=== PATIENT | male | born 1975 | race Caucasian/White ===

== ENCOUNTER 2021-02-07 12:18 | Inpatient (IN) ==
[2021-02-07] MEDS ORDERED: SODIUM CHLORIDE 0.9% 1000ML 1,000 ML IV STA (12:37)
[2021-02-07] MEDS ORDERED: HYDROmorphone INJ 0.5 MG/0.5 ML SYR IV STA (12:37)
[2021-02-07] MEDS ORDERED: ONDANSETRON INJ 2 MG/ML 2 ML VIAL IV STA (12:37)
--- NOTE | 2021-02-07 12:44 | Emergency Department Note ---
History of Present Illness General Chief complaint: GI Assessment Stated complaint: ABDOMINAL PAIN, GI BLEED Time Seen by Provider: 02/07/21 12:23 Source: patient History of Present Illness Provider complaint: Abdominal pain Onset (ago): month(s) Location: abdomen Radiation: other (Lower chest) Pain Consistency: + constant Maximum Pain Intensity: 10 Quality: + other (Pressure) Exacerbated By: + eating Associated symptoms: + nausea/vomiting; no cough, no headaches and no shortness of breath This is a 45-year-old male with a history of metastatic pancreatic cancer as well as a hepatic abscess presenting with persistent abdominal pain and vomiting for the past month and a half. The patient states that he has a diffuse pain throughout his abdomen. He rates it a 10 out of 10 in severity. He describes it as a pressure. It is worse when he tries to eat. He states that whenever he tries to eat or drink anything he feels extremely nauseated starts burping and then vomits. He was vomiting some brown material and states that his stools are dark but not black. He does have a history of hemorrhoids. He states that he cannot keep anything down and he is not urinating as much as usual and has had dark urination. He denies any fever but states he has had some chills. He denies any known exposure to COVID-19 but has not had the vaccine. He did have a negative test recently in order to get a port placed. He states he last had a bowel movement yesterday after he ate some Jell-O but it was a very scant amount. His pain does radiate into his lower chest. He denies difficulty breathing. He does have some antibiotics left for treatment of his hepatic abscess which previously had a drain and was treated at [facility]. Home Medications Medication Instructions Recorded Confirmed Type acetaminophen [Tylenol Extra 1,000 mg PO Q8H PRN 01/03/21 02/07/21 History Strength] amoxicillin 500 mg capsule 500 mg PO BID 01/28/21 02/07/21 History ibuprofen 800 mg PO Q6H PRN 01/28/21 02/07/21 History oxycodone 10 mg tablet 10 mg PO Q4H PRN 01/28/21 02/07/21 History lactobacillus combination no.4 3,000 mmu cells PO QAM 02/07/21 02/07/21 History [Probiotic] Allergies Allergy/AdvReac Type Severity Reaction Status Date / Time No Known Allergies Allergy Unverified 02/07/21 13:56 Past Med/Surg History Medical History Hepatic abscess Kidney stones no surgerical intervention Pancreatic adenocarcinoma diagnosed 12/2020 Surgical History H/O laparoscopy 12/2020 at [facility]. to drain Hepatic abscess and drain placed. Hx of surgical biopsy pancreatic cancer S/P right rotator cuff repair Family History Other No family history of adverse response to anesthesia Social History Smoking Status: Current every day smoker Tobacco Type: Cigarettes packs per day: 1; Years Smoked: 25; Second Hand Exposure: Yes (hx); Hx Alcohol Use: Yes Hx Substance Use: No Preferred Language: Gambian Communication Ability: Effective Tunnel Miner Required: No Beliefs That Will Affect Care: None Current Living Situation: Spouse and Family How many Children do You have: 3 Feels Safe at Home: Yes Assistive Devices: Glasses Review of Systems See HPI for pertinent positives & negatives. and A total of 10 systems reviewed and were otherwise negative Physical Exam Vital Signs Vital Signs - 24 hr 02/07/21 12:26 02/07/21 12:38 02/07/21 13:23 Temperature 36.9 C Temperature Source Oral Pulse Rate 92 H 74 Pulse Rate [Apical] 79 Pulse Rhythm Regular Pulse Rhythm [Apical] Regular Respiratory Rate 16 16 16 Respiratory Effort / Characteristics Non-Labored Non-Labored Respiratory Depth Normal Normal Blood Pressure 138/93 Blood Pressure [Right Arm] 140/101 H Blood Pressure Mean 108 Blood Pressure Mean [Right Arm] 114 Blood Pressure Position Lying Pulse Oximetry 95 96 95 Oxygen Delivery Method Room Air Room Air Room Air Sepsis Recent Fever Within 48 Hours No Sepsis New/Unexplained Change in Mental Status No Sepsis Action Taken by Nursing No Action Required 02/07/21 14:33 02/07/21 16:00 Temperature Temperature Source Pulse Rate Pulse Rate [Apical] 70 77 Pulse Rhythm Pulse Rhythm [Apical] Regular Respiratory Rate 29 H 16 Respiratory Effort / Characteristics Non-Labored Respiratory Depth Normal Normal Blood Pressure Blood Pressure [Right Arm] 143/106 H 141/103 H Blood Pressure Mean Blood Pressure Mean [Right Arm] 118 115 Blood Pressure Position Pulse Oximetry 95 95 Oxygen Delivery Method Room Air Room Air Sepsis Recent Fever Within 48 Hours Sepsis New/Unexplained Change in Mental Status Sepsis Action Taken by Nursing Constitutional: Vital signs reviewed. Eyes: Pupils are equal round reactive to light. Conjunctiva are noninjected. ENT: Pharynx is clear without erythema or exudate. Mucous membranes are dry. Neck supple without meningeal signs. Respiratory: Clear to auscultation bilaterally. Breath sounds are equal bilaterally. Cardiovascular: Regular rate and rhythm. No rubs or gallops. GI: Soft, nondistended with mild diffuse tenderness. Well-healed scar in the right upper quadrant measuring approximately 1.5 cm. Bowel sounds are present. Rectal: External hemorrhoids. Bright red blood without stool. Musculoskeletal: No peripheral edema. No lower extremity tenderness. Integumentary: No cyanosis. or jaundice. Neurological: The patient is awake and alert. No focal deficits. Psychiatric: Normal affect. Not anxious appearing. Course Administered Medications Hydromorphone HCl (Hydromorphone Inj 1 Mg/Ml Syringe) 1 mg IV Q1H PRN PRN Reason: Pain Stop: 02/21/21 18:14 Last Admin: 02/07/21 18:35 Dose: 1 mg Documented by: [id number] Oxycodone HCl (Oxycodone Hcl Ir 5 Mg Tab (Immediate Release)) 10 mg PO Q4H PRN PRN Reason: Pain Stop: 02/21/21 18:14 Last Admin: 02/07/21 18:42 Dose: 10 mg Documented by: [id number] Discontinued Medications Hydromorphone HCl (Hydromorphone Inj 0.5 Mg/0.5 Ml Syr) 0.5 mg IV NOW STA Stop: 02/07/21 12:38 Last Admin: 02/07/21 13:10 Dose: 0.5 mg Documented by: [id number] Sodium Chloride (Nss 1000ml) 1,000 mls @ 999 mls/hr IV .Q1H1M STA Stop: 02/07/21 13:37 Last Infusion: 02/07/21 14:29 Dose: 0 mls/hr Documented by: [id number] Admin: 02/07/21 13:08 Dose: 999 mls/hr Documented by: [id number] Lactated Ringer's (Lr) 1,000 mls @ 125 mls/hr IV .Q8H YEISON Stop: 03/09/21 14:29 Last Admin: 02/07/21 15:54 Dose: 125 mls/hr Documented by: [id number] Ondansetron HCl (Ondansetron Inj 2 Mg/Ml 2 Ml Vial) 4 mg IV NOW STA Stop: 02/07/21 12:38 Last Admin: 02/07/21 13:08 Dose: 4 mg Documented by: [id number] Medical Decision Making Differential Diagnosis NORBERTO, bowel obstruction, intra-abdominal abscess, dehydration, pancreatic mass Medical Records Attestation: I reviewed the patient's medical records. I did perform a limited focused review of portions of the patient's old chart on the electronic medical record. The patient was diagnosed early last month with metastatic pancreatic cancer. He also had a hepatic abscess and was treated at [facility]. He recently had a port placed by general surgery. Home Medications Current Medication List: was personally reviewed by me Laboratory Data Attestation: I reviewed the patient's lab results. Result diagrams: 02/07/21 12:55 02/07/21 12:55 Lab Results 02/07/21 02/07/21 02/07/21 Range/Units 12:55 12:55 12:55 WBC 10.01 (4.8-10.8) K/uL RBC 4.94 (4.7-6.1) M/uL Hgb 14.9 (14.0-18.0) g/dL Hct 42.4 (42-52) % MCV 85.8 (80-100) fL MCH 30.2 (25-34) pg MCHC 35.1 (32-36) g/dL RDW Std Deviation 41.4 (36.4-46.3) fL RDW Coeff of [place] 13.0 (11.5-14.5) % Plt Count 166 (130-400) K/uL MPV 9.5 (7.4-10.4) fL Immature Gran % (Auto) 0.7 % Neut % (Auto) 78.3 % Lymph % (Auto) 15.1 % [place] % (Auto) 2.5 % Eos % (Auto) 3.2 % Baso % (Auto) 0.2 % Neut # (Auto) 7.84 H (1.4-6.5) K/uL Lymph # (Auto) 1.51 (1.2-3.4) K/uL [place] # (Auto) 0.25 (0.11-0.59) K/uL Eos # (Auto) 0.32 (0-0.5) K/uL Baso # (Auto) 0.02 (0-0.2) K/uL Immature Gran # (Auto) 0.07 H (0.00-0.02) K/uL Sodium 136 (136-145) mmol/L Potassium 4.1 (3.5-5.1) mmol/L Chloride 101 (98-107) mmol/L Carbon Dioxide 27 (21-32) mmol/L Anion Gap 8.0 (3-11) BUN 29 H (7-18) mg/dl Creatinine 1.04 (0.6-1.4) mg/dl Est Cr Clr Drug Dosing Not Reportable Est GFR ( Amer) 98.6 ml/min Est GFR (Non-Af Amer) 85.1 ml/min BUN/Creatinine Ratio 28.2 H (10-20) Glucose 118 H (70-99) mg/dl Calcium 8.9 (8.5-10.1) mg/dl Total Bilirubin 0.6 (0.2-1) mg/dl AST 31 (15-37) U/L ALT 48 (12-78) U/L Alkaline Phosphatase 112 (45-117) U/L Troponin I < 0.015 (0-0.045) ng/ml Total Protein 7.5 (6.4-8.2) gm/dl Albumin 3.8 (3.4-5.0) gm/dl Globulin 3.7 (2.5-4.0) gm/dl Albumin/Globulin Ratio 1.0 (0.9-2) Lipase 258 (73-393) U/L Urine Color Urine Appearance (Clear) Urine pH (4.5-7.5) Ur Specific [place] (1.000-1.030) Urine Protein (Negative) Urine Glucose (UA) (Negative) Urine Ketones (Negative) Urine Blood (Negative) Urine Nitrite (Negative) Urine Bilirubin (Negative) Urine Urobilinogen (Negative) Ur Leukocyte Esterase (Negative) COVID-19 Eval Order SARS-CoV-2 (PCR) (Negative) Blood Type A Positive Antibody Screen NEGATIVE 02/07/21 02/07/21 02/07/21 Range/Units 13:15 13:15 14:30 WBC (4.8-10.8) K/uL RBC (4.7-6.1) M/uL Hgb (14.0-18.0) g/dL Hct (42-52) % MCV (80-100) fL MCH (25-34) pg MCHC (32-36) g/dL RDW Std Deviation (36.4-46.3) fL RDW Coeff of [place] (11.5-14.5) % Plt Count (130-400) K/uL MPV (7.4-10.4) fL Immature Gran % (Auto) % Neut % (Auto) % Lymph % (Auto) % [place] % (Auto) % Eos % (Auto) % Baso % (Auto) % Neut # (Auto) (1.4-6.5) K/uL Lymph # (Auto) (1.2-3.4) K/uL [place] # (Auto) (0.11-0.59) K/uL Eos # (Auto) (0-0.5) K/uL Baso # (Auto) (0-0.2) K/uL Immature Gran # (Auto) (0.00-0.02) K/uL Sodium (136-145) mmol/L Potassium (3.5-5.1) mmol/L Chloride (98-107) mmol/L Carbon Dioxide (21-32) mmol/L Anion Gap (3-11) BUN (7-18) mg/dl Creatinine (0.6-1.4) mg/dl Est Cr Clr Drug Dosing Est GFR ( Amer) ml/min Est GFR (Non-Af Amer) ml/min BUN/Creatinine Ratio (10-20) Glucose (70-99) mg/dl Calcium (8.5-10.1) mg/dl Total Bilirubin (0.2-1) mg/dl AST (15-37) U/L ALT (12-78) U/L Alkaline Phosphatase (45-117) U/L Troponin I (0-0.045) ng/ml Total Protein (6.4-8.2) gm/dl Albumin (3.4-5.0) gm/dl Globulin (2.5-4.0) gm/dl Albumin/Globulin Ratio (0.9-2) Lipase (73-393) U/L Urine Color Yellow Urine Appearance Clear (Clear) Urine pH 5.0 (4.5-7.5) Ur Specific [place] 1.030 (1.000-1.030) Urine Protein Negative (Negative) Urine Glucose (UA) Negative (Negative) Urine Ketones Negative (Negative) Urine Blood Negative (Negative) Urine Nitrite Negative (Negative) Urine Bilirubin Negative (Negative) Urine Urobilinogen Negative (Negative) Ur Leukocyte Esterase Negative (Negative) COVID-19 Eval Order Covid19 at [facility] SARS-CoV-2 (PCR) NEGATIVE (Negative) Blood Type Antibody Screen Imaging Data Radiologist's Impression: Abdomen/Pelvis CT 02/07/21 12:37 CT SCAN OF THE ABDOMEN AND PELVIS WITHOUT IV CONTRAST CLINICAL HISTORY: Generalized abdominal pain. Reported history of pancreatic cancer. COMPARISON STUDY: No priors. TECHNIQUE: CT scan of the abdomen and pelvis is performed from the lung bases to the proximal femora. Images are reviewed in the axial, sagittal, and coronal planes. IV contrast was not administered for this examination. Note that the examination was performed in significantly suboptimal fashion without oral and IV contrast. A dose lowering technique was utilized adhering to the principles of ALARA. CT DOSE: 1012.38 mGy.cm FINDINGS: Lung bases: The heart is normal in size and without pericardial effusion. There are coronary artery calcifications. The lung bases are clear. Liver: The unenhanced liver is normal in size, contour, and attenuation. There is no intrahepatic biliary ductal dilatation. There are numerous (greater than 1 0) hypodense hepatic lesions measuring up to 2.2 cm. These are highly concerning for multifocal hepatic metastatic disease. Gallbladder: Unremarkable. Spleen: Normal in size and attenuation. Pancreas: An infiltrative mass is suggested in the pancreatic head measuring approximately 3.5 cm. The pancreatic duct is normal in caliber. Adrenal glands: Unremarkable. Kidneys: The unenhanced kidneys are normal in size and without hydronephrosis. There are least 5 nonobstructing identified in each kidney which measure up to 6 mm. No ureteral stone is seen. There is no evidence of contour deforming renal mass lesion. Abdominal vasculature: The abdominal aorta is normal in course and caliber. Bowel: There is mild colonic diverticulosis without CT evidence of acute diverticulitis. No bowel obstruction is identified. The appendix is well- visualized and normal. Peritoneum: There is no intraperitoneal free air or abdominal ascites. There is a fat-containing umbilical hernia. Lymphadenopathy: There is a 1.9 x 1.8 cm lymph node posterior to the superior mesenteric artery seen on image #153. This is concerning for metastatic disease. An indeterminant portacaval node measures 1.1 cm in short axis. Pelvic viscera: The bladder, prostate, and seminal vesicles are normal as imaged. Skeletal structures: No lytic or blastic lesions are seen. IMPRESSION: 1. Significantly suboptimal examination lateral and IV contrast. 2. There are no acute infectious or inflammatory findings in the abdomen or pelvis. 3. Infiltrative low-attenuation mass lesion is suggested in the pancreatic head, likely corresponding to the reported history of pancreatic cancer. 4. There are numerous (greater than 10) low attenuation hepatic lesions. These are highly suspicious for multifocal hepatic metastatic disease. 5. Enlarged upper abdominal lymph node is also likely neoplastic. 6. Bilateral nephrolithiasis. 7. Mild colonic diverticulosis without CT evidence of acute diverticulitis. 8. Additional findings as above. ACT 112: Negative or not required by law. Electronically signed by: Severiano Watson M.D. 02/07/2021 1:38 PM ECG Data Attestation: I personally reviewed and interpreted this ECG as follows: Indication: + abdominal pain Rate (beats per minute): 92 Rhythm: + normal sinus ECG ST segments: no ST elevation ECG Findings: + PACs MDM Narrative I did evaluate the patient as noted above. The patient is presenting with intermittent vomiting and abdominal pain since he was diagnosed with metastatic pancreatic cancer last month. He states it has recently got worse and he has not been able to keep down any liquids or solids. He states that he is not necessarily nauseated but when he drinks something he starts burping and then throws up. He states he is not urinating very much and his urine looks dark. I did place an order for continuous cardiac monitoring. The monitor showed normal sinus rhythm at a rate of 85 bpm. I did order and personally review the patient's 12-lead EKG as described above. He has no acute ischemic changes on twelve-lead EKG.I did order and review the patient's blood work as noted in the electronic medical record. His white blood cell count is not elevated. Hemoglobin is 14.9 which is increased from 14.5 from his last visit. Platelet count is 166. Electrolytes, LFTs and lipase are unremarkable. I did order a CT of the abdomen and pelvis. I did review the images myself as well as the radiology report as described above. He has no evidence of obstruction. He does have pancreatic head mass with metastatic disease to the liver. I did treat the patient with normal saline IV. I also treated him with Dilaudid and Zofran IV. I did discuss the test results with the patient and his . He did not feel he could go home at this time as he is taking 2 different med ications for nausea and vomiting and they are not effective. He will be hospitalized for hydration and further care. I did discuss case with the hospitalist and egg caser. Impression & Plan Acute dehydration, Bright red rectal bleeding, Vomiting, Pancreatic cancer metastasized to liver Discharge Plan Visit Data Chief Complaint: GI Assessment Stated Complaint: ABDOMINAL PAIN, GI BLEED ED Provider: Aidan Fernandez Discharge Problem: Acute dehydration, Bright red rectal bleeding, Vomiting, Pancreatic cancer metastasized to liver Patient Disposition: Being Evaluated by Hospitalist Discharge Problem: Vomiting Qualifiers: Vomiting type: unspecified Vomiting Intractability: intractable Nausea presence: without nausea Qualified Code(s): R11.11 - Vomiting without nausea
[2021-02-07 13:04] LABS: Basophils # (auto) 0.02 K/uL (0-0.2); Basophils % (auto) 0.2 %; Eosinophils # (auto) 0.32 K/uL (0-0.5); Eosinophils % (auto) 3.2 %; Hematocrit (blood only) 42.4 % (42-52); Hemoglobin 14.9 g/dL (14.0-18.0); Immature Granulocytes # (auto) 0.07 K/uL (0.00-0.02); Immature Granulocytes % (auto) 0.7 %; Lymphocytes # (auto) 1.51 K/uL (1.2-3.4); Lymphocytes % (auto) 15.1 %; Mean Corpuscular Hemoglobin 30.2 pg (25-34); Mean Corpuscular Hgb Conc 35.1 g/dL (32-36); Mean Corpuscular Volume 85.8 fL (80-100); Mean Platelet Volume 9.5 fL (7.4-10.4); Monocytes # (auto) 0.25 K/uL (0.11-0.59); Monocytes % (auto) 2.5 %; Neutrophils # (auto) 7.84 K/uL (1.4-6.5); Neutrophils % (auto) 78.3 %; Platelet Count 166 K/uL (130-400); RDW Standard Deviation 41.4 fL (36.4-46.3); Red Blood Count 4.94 M/uL (4.7-6.1); White Blood Count 10.01 K/uL (4.8-10.8)
[2021-02-07 13:22] LABS: Alanine Aminotransferase 48 U/L (12-78); Albumin Level 3.8 gm/dl (3.4-5.0); BUN Creatinine Ratio 28.2 (10-20); Blood Urea Nitrogen 29 mg/dl (7-18); Calcium 8.9 mg/dl (8.5-10.1); Carbon Dioxide 27 mmol/L (21-32); Chloride 101 mmol/L (98-107); Est GFR (African American) 98.6 ml/min; Est GFR (Non-African American) 85.1 ml/min; Glucose 118 mg/dl (70-99); Lipase 258 U/L (73-393); Potassium 4.1 mmol/L (3.5-5.1); Sodium 136 mmol/L (136-145)
[2021-02-07 13:28] LABS: Alkaline Phosphatase 112 U/L (45-117); Aspartate Aminotransferase 31 U/L (15-37); Bilirubin,Total 0.6 mg/dl (0.2-1); Globulin 3.7 gm/dl (2.5-4.0); Total Protein 7.5 gm/dl (6.4-8.2); Troponin I < 0.015 ng/ml (0-0.045)
--- NOTE | 2021-02-07 13:39 | CT Scan Report ---
CT SCAN OF THE ABDOMEN AND PELVIS WITHOUT IV CONTRAST CLINICAL HISTORY: Generalized abdominal pain. Reported history of pancreatic cancer. COMPARISON STUDY: No priors. TECHNIQUE: CT scan of the abdomen and pelvis is performed from the lung bases to the proximal femora. Images are reviewed in the axial, sagittal, and coronal planes. IV contrast was not administered for this examination. Note that the examination was performed in significantly suboptimal fashion withou t oral and IV contrast. A dose lowering technique was utilized adhering to the principles of ALARA. CT DOSE: 1012.38 mGy.cm FINDINGS: Lung bases: The heart is normal in size and without pericardial effusion. There are coronary artery c alcifications. The lung bases are clear. Liver: The unenhanced liver is normal in size, contour, and attenuation. There is no intrahepatic rut iary ductal dilatation. There are numerous (greater than 10) hypodense hepatic lesions measuring up t o 2.2 cm. These are highly concerning for multifocal hepatic metastatic disease. Gallbladder: Unremarkable. Spleen: Normal in size and attenuation. Pancreas: An infiltrative mass is suggested in the pancreatic head measuring approximately 3.5 cm. Th e pancreatic duct is normal in caliber. Adrenal glands: Unremarkable. Kidneys: The unenhanced kidneys are normal in size and without hydronephrosis. There are least 5 nono bstructing identified in each kidney which measure up to 6 mm. No ureteral stone is seen. There is no evidence of contour deforming renal mass lesion. Abdominal vasculature: The abdominal aorta is normal in course and caliber. Bowel: There is mild colonic diverticulosis without CT evidence of acute diverticulitis. No bowel obs truction is identified. The appendix is well-visualized and normal. Peritoneum: There is no intraperitoneal free air or abdominal ascites. There is a fat-containing umbi lical hernia. Lymphadenopathy: There is a 1.9 x 1.8 cm lymph node posterior to the superior mesenteric artery seen on image #153. This is concerning for metastatic disease. An indeterminant portacaval node measures 1 .1 cm in short axis. Pelvic viscera: The bladder, prostate, and seminal vesicles are normal as imaged. Skeletal structures: No lytic or blastic lesions are seen. IMPRESSION: 1. Significantly suboptimal examination lateral and IV contrast. 2. There are no acute infectious or inflammatory findings in the abdomen or pelvis. 3. Infiltrative low-attenuation mass lesion is suggested in the pancreatic head, likely corresponding to the reported history of pancreatic cancer. 4. There are numerous (greater than 10) low attenuation hepatic lesions. These are highly suspicious for multifocal hepatic metastatic disease. 5. Enlarged upper abdominal lymph node is also likely neoplastic. 6. Bilateral nephrolithiasis. 7. Mild colonic diverticulosis without CT evidence of acute diverticulitis. 8. Additional findings as above. ACT 112: Negative or not required by law. Electronically signed by: Severiano Watson M.D. 02/07/2021 1:38 PM
[2021-02-07] MEDS ORDERED: LACTATED RINGER'S 1,000 ML IV SCH (14:30)
[2021-02-07 14:47] LABS: Appearance Urine Clear (Clear); Bilirubin Urine Negative (Negative); Blood Urine Negative (Negative); Color Urine Yellow; Glucose Urine UA Negative (Negative); Ketones Urine Negative (Negative); Leukocyte Esterase Urine Negative (Negative); Nitrite Urine Negative (Negative); Protein Urine Negative (Negative); Urobilinogen Urine Negative (Negative)
--- NOTE | 2021-02-07 15:21 | History & Physical Report ---
Date of Service February 07, 2021 Assessment & Plan (1) Acute dehydration: (2) Intractable nausea and vomiting: (3) Pancreatic cancer metastasized to liver: (4) Pancreatic adenocarcinoma: Mr. Negrete is a 45-year-old male a history of Metastatic Pancreatic Adenocarcinoma with Liver Metastases, Nephrolithiasis, Hemorrhoids, and a history of a Liver Abscess s/p Surgical Intervention/Drain at [facility] who presents acutely to [facility] ER today with Acute Dehydration, Abdominal Pain, and Intractable Nausea and Vomiting. His complaints included persistent abdominal pain and vomiting for the past month and a half. The patient has a diffuse pain/pressure rated at a 10/10 throughout his abdomen but mostly in the upper abdomen and midepigastrium. He describes it mostly as a pressure and it gets worse if he tries to eat or drink. If he tries to eat or drink anything he feels extremely nauseated, starts burping, and then he usually vomits. He was vomiting up some brown material and he admits that his stools are dark but not black. He does have a history of hemorrhoids. He cannot keep anything down and he is not urinating as much as usual. When he urinates it is very dark and concentrated. Patient denies any fever but states he has had some chills. Patient continues to gradually lose weight. He has lost about 25 lb since being diagnosed with pancreatic cancer. His last bowel movement was yesterday after he ate some Jell-O but it was a very small amount. The upper abdominal/midepigastric pain does radiate into his lower chest. He denies associated SOB, GOLDSTEIN, diaphoresis -- so this is not cardiac. Patient is currently receiving his chemotherapy treatments through the [facility]. He is on the FOLFIRINOX protocol every 2 weeks (this includes Fluorouracil, Leucovorin, Irinotecan, Oxaliplatin). His last chemotherapy treatment was on 02/01/21. His oncologist is Dr. Armenta. 1. Admit to Med-Surg on observation status. 2. IVF rehydration. 3. GI Consult regarding intractable nausea/vomiting, possible EGD. 4. Opiate analgesics for pain control. 5. IV Famotidine 20 mg q 12 hours. 6. Gradually progress diet as tolerated. 7. Metoclopramide 5 mg as needed. 8. SL Nitroglycerin as needed for esophageal spasms, abdominal colic. 9. Monitor daily labs. History of Present Illness Chief Complaint: -- Nausea and Vomiting. -- Metastatic Pancreatic Adenocarcinoma. -- h/o Hepatic Abscesses. Primary Care Provider: Neal Franco PA-C Mr. Negrete is a 45-year-old male a history of Metastatic Pancreatic Adenocarcinoma with Liver Metastases, Nephrolithiasis, Hemorrhoids, and a history of a Liver Abscess s/p Surgical Intervention/Drain at [facility] who presents acutely to [facility] ER today complaining of persistent abdominal pain and vomiting for the past month and a half. The patient has a diffuse pain/pressure rated at a 10/10 throughout his abdomen but mostly in the upper abdomen and midepigastrium. He describes it mostly as a pressure and it gets worse when he eats or drinks. If he tries to eat or drink anything he feels extremely nauseated, starts burping, and then he usually vomits. He was vomiting up some brown material and he admits that his stools are dark but not black. He does have a history of hemorrhoids. He cannot keep anything down and he is not urinating as much as usual. When he urinates it is very dark and concentrated. Patient denies any fever but states he has had some chills. Patient continues to gradually lose weight. He has lost about 25 lb since being diagnosed with pancreatic cancer. Patient denies any known exposure to COVID-19 but has not had the vaccine. He did have a negative test recently in order to get a port placed. His last bowel movement was yesterday after he ate some Jell-O but it was a very small amount. The upper abdominal/midepigastric pain does radiate into his lower chest. He denies associated SOB, GOLDSTEIN, diaphoresis. He does have some antibiotics left for treatment of his hepatic abscess which previously had a drain and was treated at [facility]. Patient is currently receiving his chemotherapy treatments through the [facility]. He is on the FOLFIRINOX protocol every 2 weeks (this includes Fluorouracil, Leucovorin, Irinotecan, Oxaliplatin). His last chemotherapy treatment was on 02/01/21. His oncologist is Dr. Armenta. Allergies Allergy/AdvReac Type Severity Reaction Status Date / Time No Known Allergies Allergy Unverified 02/07/21 13:56 Home Medications Medication Instructions Recorded Confirmed Type acetaminophen [Tylenol Extra 1,000 mg PO Q8H PRN 01/03/21 02/07/21 History Strength] amoxicillin 500 mg capsule 500 mg PO BID 01/28/21 02/07/21 History ibuprofen 800 mg PO Q6H PRN 01/28/21 02/07/21 History oxycodone 10 mg tablet 10 mg PO Q4H PRN 01/28/21 02/07/21 History lactobacillus combination no.4 3,000 mmu cells PO QAM 02/07/21 02/07/21 History [Probiotic] Past Med/Surg History Medical History Hepatic abscess Kidney stones no surgerical intervention Pancreatic adenocarcinoma diagnosed 12/2020 Surgical History H/O laparoscopy 12/2020 at [facility]. to drain Hepatic abscess and drain placed. Hx of surgical biopsy pancreatic cancer S/P right rotator cuff repair Family History Other No family history of adverse response to anesthesia Social History Smoking Status: Former smoker Tobacco Type: Cigarettes packs per day: 1; Years Smoked: 25; Second Hand Exposure: No; Do You Dip or Chew Tobacco: No; Tobacco Cessation Education Requested by Patient: No Hx Alcohol Use: No Hx Substance Use: No Preferred Language: Bulgarian Communication Ability: Effective Station Master Required: No Beliefs That Will Affect Care: None Current Living Situation: Spouse and Family Current Living Situation Comment: Spouse and 1 child. How many Children do You have: 3 Other Information That Helps Us Care for You: No Feels Safe at Home: Yes Safety Concerns: Feels Safe At This Time Assistive Devices: Glasses Assistive Devices Comment: Glasses for reading, not with pt. Review of Systems Review of Systems: All systems reviewed & are unremarkable except as noted in Subjective Physical Exam Physical Exam: GENERAL: Patient has a pale complexion, he is lying comfortably on the ER litter. HEENT: Head is atraumatic, normocephalic. Sclerae are anicteric. EOM's intact. Facies symmetric. No perioral cyanosis. NECK: No JVD. JVP is not elevated. Carotid upstrokes are + 2 bilaterally. No bruits are noted. No cervical adenopathy or supraclavicular adenopathy. CHEST/LUNGS: Clear to auscultation throughout all lung leonard. No wheezes, rales, or crackles. CVS: S1 and S2 are regular without murmurs, gallops, or rubs. PMI is nondisplaced. No lifts, heaves, or thrills. No abdominal aortic or renal bruits. ABDOMINAL EXAM: Bowel sounds are present. Mild tender to palpation in the midepigastrium. No guarding, rigidity, or rebound tenderness. No palpable masses. EXTREMITIES: No clubbing or cyanosis. No edema. Intact posterior tibial and radial pulses bilaterally. NEUROLOGIC EXAM: Patient is lying quietly, but rouses to verbal stimuli. Answers questions appropriately. Speech is clear. Normal movement in all 4 extremities. Gait pattern was not assessed. Results & Data Results & Data ([facility]) Vital Signs (Past 12 Hours) Vital Signs Temp Pulse Pulse Resp BP BP Pulse Ox 02/07/21 13:23 79 16 140/101 H 95 02/07/21 12:38 74 16 96 02/07/21 12:26 36.9 C 92 H 16 138/93 95 Laboratory Results Laboratory Results - last 24 hr 02/07/21 02/07/21 02/07/21 12:55 12:55 12:55 WBC 10.01 RBC 4.94 Hgb 14.9 Hct 42.4 MCV 85.8 MCH 30.2 MCHC 35.1 RDW Std Deviation 41.4 RDW Coeff of Golden 13.0 Plt Count 166 MPV 9.5 Immature Gran % (Auto) 0.7 Neut % (Auto) 78.3 Lymph % (Auto) 15.1 Warrick % (Auto) 2.5 Eos % (Auto) 3.2 Baso % (Auto) 0.2 Neut # (Auto) 7.84 H Lymph # (Auto) 1.51 Warrick # (Auto) 0.25 Eos # (Auto) 0.32 Baso # (Auto) 0.02 Immature Gran # (Auto) 0.07 H Sodium 136 Potassium 4.1 Chloride 101 Carbon Dioxide 27 Anion Gap 8.0 BUN 29 H Creatinine 1.04 Est Cr Clr Drug Dosing Not Reportable Est GFR ( Amer) 98.6 Est GFR (Non-Af Amer) 85.1 BUN/Creatinine Ratio 28.2 H Glucose 118 H Calcium 8.9 Total Bilirubin 0.6 AST 31 ALT 48 Alkaline Phosphatase 112 Troponin I < 0.015 Total Protein 7.5 Albumin 3.8 Globulin 3.7 Albumin/Globulin Ratio 1.0 Lipase 258 Urine Color Urine Appearance Urine pH Ur Specific Amelia Urine Protein Urine Glucose (UA) Urine Ketones Urine Blood Urine Nitrite Urine Bilirubin Urine Urobilinogen Ur Leukocyte Esterase COVID-19 Eval Order SARS-CoV-2 (PCR) Blood Type A Positive Antibody Screen NEGATIVE 02/07/21 02/07/21 02/07/21 13:15 13:15 14:30 WBC RBC Hgb Hct MCV MCH MCHC RDW Std Deviation RDW Coeff of Golden Plt Count MPV Immature Gran % (Auto) Neut % (Auto) Lymph % (Auto) Warrick % (Auto) Eos % (Auto) Baso % (Auto) Neut # (Auto) Lymph # (Auto) Warrick # (Auto) Eos # (Auto) Baso # (Auto) Immature Gran # (Auto) Sodium Potassium Chloride Carbon Dioxide Anion Gap BUN Creatinine Est Cr Clr Drug Dosing Est GFR ( Amer) Est GFR (Non-Af Amer) BUN/Creatinine Ratio Glucose Calcium Total Bilirubin AST ALT Alkaline Phosphatase Troponin I Total Protein Albumin Globulin Albumin/Globulin Ratio Lipase Urine Color Yellow Urine Appearance Clear Urine pH 5.0 Ur Specific Amelia 1.030 Urine Protein Negative Urine Glucose (UA) Negative Urine Ketones Negative Urine Blood Negative Urine Nitrite Negative Urine Bilirubin Negative Urine Urobilinogen Negative Ur Leukocyte Esterase Negative COVID-19 Eval Order Covid19 at [facility] SARS-CoV-2 (PCR) NEGATIVE Blood Type Antibody Screen Diagnostic Findings CT SCAN ABDOMEN/PELVIS 02/07/21: Lung bases: The heart is normal in size and without pericardial effusion. There are coronary artery calcifications. The lung bases are clear. Liver: The unenhanced liver is normal in size, contour, and attenuation. There is no intrahepatic biliary ductal dilatation. There are numerous (greater than 10) hypodense hepatic lesions measuring up to 2.2 cm. These are highly concerning for multifocal hepatic metastatic disease. Gallbladder: Unremarkable. Spleen: Normal in size and attenuation. Pancreas: An infiltrative mass is suggested in the pancreatic head measuring approximately 3.5 cm. The pancreatic duct is normal in caliber. Adrenal glands: Unremarkable. Kidneys: The unenhanced kidneys are normal in size and without hydronephrosis. There are least 5 nonobstructing identified in each kidney which measure up to 6 mm. No ureteral stone is seen. There is no evidence of contour deforming renal mass lesion. Abdominal vasculature: The abdominal aorta is normal in course and caliber. Bowel: There is mild colonic diverticulosis without CT evidence of acute diverticulitis. No bowel obstruction is identified. The appendix is well- visualized and normal. Peritoneum: There is no intraperitoneal free air or abdominal ascites. There is a fat-containing umbilical hernia. Lymphadenopathy: There is a 1.9 x 1.8 cm lymph node posterior to the superior mesenteric artery seen on image #153. This is concerning for metastatic disease. An indeterminant portacaval node measures 1.1 cm in short axis. Pelvic viscera: The bladder, prostate, and seminal vesicles are normal as imaged. Skeletal structures: No lytic or blastic lesions are seen. IMPRESSION: 1. Significantly suboptimal examination lateral and IV contrast. 2. There are no acute infectious or inflammatory findings in the abdomen or pelvis. 3. Infiltrative low-attenuation mass lesion is suggested in the pancreatic head, likely corresponding to the reported history of pancreatic cancer. 4. There are numerous (greater than 10) low attenuation hepatic lesions. These are highly suspicious for multifocal hepatic metastatic disease. 5. Enlarged upper abdominal lymph node is also likely neoplastic. 6. Bilateral nephrolithiasis. 7. Mild colonic diverticulosis without CT evidence of acute diverticulitis. 8. Additional findings as above. Code Status & VTE Plan Code Status Full Code VTE Prophylaxis Plan VTE Prophylaxis will be ordered: Yes Supervising Physician Co-Signing Physician Notes I personally saw and examined the patient. I verified all kwong points and agree with Cricket Patel PA-C with the following exceptions and/or additions: 45 year old male with pancreatic adenocarcinoma, intractable nausea and unable to keep food or liquids down at the current time. Worse with cold liquids. Generalized abdominal pain but not associated his nausea. Having regular BM, not constipated. CT in ER unremarkable for acute etiology. O/E chronically ill appearing, mild generalized abdominal pain, no reproducible chest pain A/P Nausea, reduced appetite - no esophageal stenosis suspected from history. Less likely chemo/antibiotic related. Lipase WNL. possible reflux although suspect they would have seen changes on prior EGD, start famotidine 20mg IV BID. ?dysmotility - trial metoclopramide. ?esophageal spasm - nitroglycerin PRN for chest pain. Consult gastroenterology for ongoing advice. PG Care Time/CCT Total # of Minutes Spent Total Time Spent with Patient: Total time spent is greater than 50% in coordination of care (as documented) at patient's floor/unit and/or counseling patient:35 Coding Level of Care Code 93703 OBS Care - Level 3 Diagnoses Acute dehydration E86.0 Intractable nausea and vomiting R11.2 Pancreatic cancer metastasized to liver C25.9; C78.7 Pancreatic adenocarcinoma C25.9 Time Spent (min) 48
[2021-02-07] MEDS ORDERED: MAGNESIUM HYDROXIDE SUSP 30 ML UDC PO PRN (18:15)
[2021-02-07] MEDS ORDERED: ACETAMINOPHEN 325 MG TAB PO PRN (18:15)
[2021-02-07] MEDS ORDERED: IBUPROFEN 800 MG TAB PO PRN (18:15)
[2021-02-07] MEDS ORDERED: ALUMINUM/MAGNESIUM SUSP 30 ML UDC PO PRN (18:15)
[2021-02-07] MEDS ORDERED: POLYETHYLENE (MIRALAX) 17 GM PACK PO PRN (18:15)
[2021-02-07] MEDS ORDERED: ACETAMINOPHEN HOME PACK 500 MG TABLET PO PRN (18:15)
[2021-02-07] MEDS ORDERED: ONDANSETRON INJ 2 MG/ML 2 ML VIAL IV PRN (18:15)
[2021-02-07] MEDS ORDERED: METOCLOPRAMIDE HCL 5 MG TABLET PO PRN (18:15)
[2021-02-07] MEDS ORDERED: NITROGLYCERIN SL 0.4 MG/TAB TAB SL PRN (18:15)
[2021-02-07] MEDS ORDERED: ZOLPIDEM TARTRATE 5 MG TAB PO PRN (18:15)
[2021-02-07] MEDS ORDERED: [UNRECOGNIZED DRUG - OTHER] SCH (18:30)
[2021-02-07] MEDS: HYDROmorphone INJ 1 MG/ML SYRINGE IV PRN ×2 (18:35→20:43)
[2021-02-07] MEDS: oxyCODONE HCL IR 5 MG TAB (IMMEDIATE RELEASE) PO PRN (18:42)
[2021-02-07] MEDS: D5W AND 1/2NSS 1,000 ML IV SCH (19:43)
[2021-02-07] MEDS: FAMOTIDINE 20 MG in SYRINGE 3 ML IV SCH (21:08)
[2021-02-07] MEDS: AMOXICILLIN 500 MG CAP PO SCH (21:08)
[2021-02-07] MEDS: ENOXAPARIN INJ 40 MG/0.4 ML SYR SQ SCH (21:08)
[2021-02-08] MEDS: HYDROmorphone INJ 1 MG/ML SYRINGE IV PRN ×9 (00:17→21:34)
[2021-02-08] MEDS: D5W AND 1/2NSS 1,000 ML IV SCH (03:28)
--- NOTE | 2021-02-08 06:15 | Electrocardiogram Report ---
Test Reason : Blood Pressure : / mmHG Vent. Rate : 092 BPM Atrial Rate : 092 BPM P-R Int : 146 ms QRS Dur : 080 ms QT Int : 374 ms P-R-T Axes : 021 062 053 degrees QTc Int : 462 ms Poor data quality, interpretation may be adversely affected Sinus rhythm with Premature atrial complexes Nonspecific ST abnormality Abnormal ECG No previous ECGs available Confirmed by Gregorio Ledbetter ([id number]) on 02/08/2021 6:15:17 AM Referred By: REFERRED SELF Confirmed By:Gregorio Ledbetter
[2021-02-08 08:36] LABS: Hematocrit (blood only) 32.9 % (42-52); Hemoglobin 11.5 g/dL (14.0-18.0); Mean Corpuscular Volume 85.9 fL (80-100); Mean Platelet Volume 9.4 fL (7.4-10.4); Platelet Count 70 K/uL (130-400); RDW Coefficient of Variation 13.2 % (11.5-14.5); RDW Standard Deviation 41.4 fL (36.4-46.3); Red Blood Count 3.83 M/uL (4.7-6.1); White Blood Count 5.75 K/uL (4.8-10.8)
[2021-02-08 08:38] LABS: Basophils # (auto) 0.01 K/uL (0-0.2); Basophils % (auto) 0.2 %; Eosinophils # (auto) 0.19 K/uL (0-0.5); Eosinophils % (auto) 3.3 %; Immature Granulocytes # (auto) 0.02 K/uL (0.00-0.02); Immature Granulocytes % (auto) 0.3 %; Lymphocytes # (auto) 1.39 K/uL (1.2-3.4); Lymphocytes % (auto) 24.2 %; Monocytes # (auto) 0.18 K/uL (0.11-0.59); Monocytes % (auto) 3.1 %; Neutrophils # (auto) 3.96 K/uL (1.4-6.5); Neutrophils % (auto) 68.9 %; Platelet Estimate Decreased (Normal)
[2021-02-08 08:44] LABS: Albumin Level 2.9 gm/dl (3.4-5.0); BUN Creatinine Ratio 27.2 (10-20); Calcium 8.3 mg/dl (8.5-10.1); Creatinine Clr Calc Pharmacy 138.7 ml/min; Est GFR (African American) 123.3 ml/min; Est GFR (Non-African American) 106.4 ml/min; Potassium 3.6 mmol/L (3.5-5.1)
[2021-02-08 08:54] LABS: Bilirubin,Total 0.5 mg/dl (0.2-1); Globulin 2.9 gm/dl (2.5-4.0); Total Protein 5.8 gm/dl (6.4-8.2)
[2021-02-08] MEDS: ADVANCED PROBIOTIC 1250 MG CAPSULE PO SCH (09:16)
[2021-02-08] MEDS: AMOXICILLIN 500 MG CAP PO SCH ×2 (09:16→21:26)
[2021-02-08] MEDS: FAMOTIDINE 20 MG in SYRINGE 3 ML IV SCH ×2 (09:37→21:27)
--- NOTE | 2021-02-08 11:26 | Gastrointestinal Consultation ---
Date of Consultation February 08, 2021 Assessment & Plan (1) Pancreatic adenocarcinoma: (2) Intractable nausea and vomiting: Pt. is a 45 y.o. male with metastatic pancreatic CA, dx by [facility] admitted with abdominal pain and n/v. Disease has been progressing rapidly. Has just started chemotherapy at [facility]. Suspect abdominal pain and nausea related to disease burden. 1. Continue supportive care with Famotidine and Reglan as prescribed. 2. Add Pantoprazole 40 mg PO BID. 3. Limited role for EGD given recent endoscopic work up. 4. Consider adding additional antiemetics such as IV Emend. 5. Continue supportive care. Patient to follow up with [facility] upon discharge. Patient may need to be reconsidered for a palliative stent in the future if pancreatic head mass continues to increase in size. Thank you for allowing us to participate in the care of this pleasant patient. If you have any questions or concerns, please do not hesitate to contact us. Supervising Physician Co-Signing Physician Notes Agree with NATHALIA Guzman Poor prognosis Continue current therapy and supportive care No plans for invasive testing History of Present Illness Reason for Consultation: N/V abdominal pain Requesting Physician: Cricket Patel PA-C Attending Physician: Sam Murdock DO History of Present Illness Patient is a very pleasant 45 y.o. male with newly diagnosed metastatic lemus creatic adenocarcinoma diagnosed with EUS by [facility] last month. From prior records reviewed, it appears the initial lesion measured ~1.6 cm but has been noted to have rapid growth and now measuring on 3.[address] imaging obtained upon admission. He is noted to have hepatic mets and progressive peritoneal lymphadenopathy. Patient states he develops abdominal pressure and discomfort in the RUQ with radiation across bilateral lower quadrants post prandially. Additionally, he states he will begin to feel pressure building in the upper abdomen causing excessive belching and eventually n/v. No biliary ductal dilation or elevated liver panel. No palliative stent warranted during recent EUS. He remains on Zofran 4 mg every 6 hours prn. Just started on GERD prophylaxis and Reglan. Allergies Allergy/AdvReac Type Severity Reaction Status Date / Time No Known Allergies Allergy Unverified 02/07/21 13:56 Home Medications Medication Instructions Recorded Confirmed Type acetaminophen [Tylenol Extra 1,000 mg PO Q8H PRN 01/03/21 02/07/21 History Strength] amoxicillin 500 mg capsule 500 mg PO BID 01/28/21 02/07/21 History ibuprofen 800 mg PO Q6H PRN 01/28/21 02/07/21 History oxycodone 10 mg tablet 10 mg PO Q4H PRN 01/28/21 02/07/21 History lactobacillus combination no.4 3,000 mmu cells PO QAM 02/07/21 02/07/21 History [Probiotic] Patient History Medical History Hepatic abscess Kidney stones no surgerical intervention Pancreatic adenocarcinoma diagnosed 12/2020 Surgical History H/O laparoscopy 12/2020 at [facility]. to drain Hepatic abscess and drain placed. Hx of surgical biopsy pancreatic cancer S/P right rotator cuff repair Family History Other No family history of adverse response to anesthesia Social History Smoking Status: Former smoker Tobacco Type: Cigarettes packs per day: 1; Years Smoked: 25; Second Hand Exposure: No; Do You Dip or Chew Tobacco: No; Tobacco Cessation Education Requested by Patient: No Hx Alcohol Use: No Hx Substance Use: No Preferred Language: Malawian Communication Ability: Effective Sandal Parts Assembler Required: No Beliefs That Will Affect Care: None Current Living Situation: Spouse and Family Current Living Situation Comment: Spouse and 1 child. How many Children do You have: 3 Other Information That Helps Us Care for You: No Feels Safe at Home: Yes Safety Concerns: Feels Safe At This Time Assistive Devices: None Assistive Devices Comment: Glasses for reading, not with pt. Review of Systems Constitutional: no fever and no chills Gastrointestinal: as per Subjective / HPI Physical Exam Constitutional: WD/WN, vitals as above Eyes: EOM intact bilaterally Neck: normal appearance Respiratory: normal respiratory effort, lungs clear to auscultation Cardiovascular: Rate/Rhythm: regular rate and regular rhythm Heart Sounds: no gallop and no murmur Gastrointestinal (Abdomen): Inspection/Auscultation: normal bowel sounds Percussion/Palpation: + abdomen tender (diffusely) and abdomen soft Musculoskeletal: Extremities: no cyanosis no lower extremity edema Skin: no rashes, warm and dry Neurologic: moves all extremities Psychiatric: A+Ox3, euthymic affect Results & Data ([facility]) Vital Signs (Past 12 Hours) Vital Signs Temp Pulse Resp BP Pulse Ox 02/08/21 07:18 36.6 C 67 16 133/82 93 02/07/21 23:24 36.6 C 66 16 119/71 95 PG Care Time/CCT Total # of Minutes Spent Total Time Spent with Patient: Total time spent is greater than 50% in coordination of care (as documented) at patient's floor/unit and/or counseling patient: Coding Level of Care Code 22371 Inpt Consult Level 4 Diagnoses Pancreatic adenocarcinoma C25.9 Intractable nausea and vomiting R11.2
[2021-02-08] MEDS: PANTOprazole 40 MG TAB PO SCH ×2 (13:11→21:26)
--- NOTE | 2021-02-08 14:43 | Hospitalist Progress Note ---
Date of Service February 08, 2021 Assessment & Plan (1) Pancreatic adenocarcinoma: Mr. Negrete is a 45-year-old male a history of metastatic pancreatic adenocarcinoma with liver metastases, nephrolithiasis, hemorrhoids, and a history of a liver abscess s/p surgical intervention/drain at [facility] who presents acutely to [facility] with acute dehydration, abdominal Pain, and intractable nausea and vomiting. Metastatic Pancreatic Adenocarcinoma w/ Intractable Nausea, Vomiting, and Abdominal Pain - CT A/P 02/07: - IVF for rehydration - Pain and nausea control - Nausea control with: Zofran 4mg IV q6h scheduled, one dose of Emend 40mg trialed today, Reglan 5mg q6h prn, Compazine 5mg q6h prn - Oxycodone 10mg po q4h prn, Dilaudid 1mg IV q1h prn, Ibuprofen 800mg q6h prn, and Tylenol 650mg q4h prn - Started on Fentanyl patch 25 mcg TD q3d started today (02/08) - Continue IV famotidine 20mg q12h; also started on Protonix 40mg po BID today (02/08) - Continue SL nitroglycerin prn for esophageal spasms or abdominal colic - Continue home probiotic - EKG 02/07 w/ SR w with PACs, QTc 462 - Patient NPO on admission. Restarted full diet today but patient advised to advance diet as tolerated. - Will start Marinol for appetite stimulant tonight (plan to start at 2.5mg and will double tomorrow). - GI consult for intractable n/v/abd pain. Appreciate their recommendations: poor prognosis, no EGD at this time, continue supportive management - Radiation oncology consulted today - Patient is currently receiving his chemotherapy treatments through the [facility] w/ Dr. Armenta - Regimen is FOLFIRINOX protocol every 2 weeks (this includes Fluorouracil, Leucovorin, Irinotecan, Oxaliplatin) - His last chemotherapy treatment was on 02/01/21; currently scheduled for next oncology appointment in 1 week on 02/15/21 Acute Dehydration - Rehydrated with IVF - Will continue to monitor BMP FENGI: Regular diet DVT PPx: Lovenox 40mg SQ q24h Dispo: Medsurg Code status: FULL CODE (2) Pancreatic cancer metastasized to liver: (3) Acute dehydration: (4) Intractable nausea and vomiting: Admission and Anticipated Discharge Date Admission Date: February 07, 2021 Supervising Physician Co-Signing Physician Notes I personally examined the patient and verified all kwong points of history and exam, discussed case, and agree with decision making with Dr Godoy. Still having a lot of pain. No appetite. Whenever he does try to eat he has a lot of burping and reflux afterwards. Sometimes vomiting. Has lost about 25 pounds since diagnosis. Vitals noted, in general he is laying very still in bed appearing ill and weak. HEENT normocephalic atraumatic mucous membranes are fortunately moist. Breathing unlabored no accessory muscle use good effort. Extremities show no cyanosis or clubbing. Neuro shows no focal deficits. Failure to thrive/intractable pain/acute protein calorie malnutrition in the context of metastatic pancreatic cancerunfortunately his pain seems to be purely or at the very least very heavily cancer driven. Consult radiation oncology to see if there is a role for palliative radiation for pain control. Add fentanyl patch, and titrate pain meds as needed/as possible, patient requested lidocaine patchgive this a trial. For his appetite, aggressive acid suppression, scheduled Zofran, trial of a dose of Emend, titration of Marinol, consider Remeron, continue other as needed's for nausea. Since he is not taking in much of anything meaningful right now, will also give a degree of maintenance IV fluids. Otherwise as above. Subjective Patient seen and evaluated at bedside this morning. Complains of persistent nausea and abdominal pain. Pain is exacerbated with movement and eating. He has been NPO since admission. Patient does clarify to me this morning that the symptoms have not acutely worsened over the past few days but rather have been progressive over the past 1 1/2 months since diagnosis of the metastatic pancreatic adenocarcinoma. Patient denies fevers, chills, SOB, CP, or leg pain. Review of Systems Review of Systems: See HPI Physical Exam Physical Exam: GENERAL: Ill appearing male laying in bed in no acute distress. Appears stated age. Vital signs reviewed as above. EYES: EOMI. Anicteric sclerae. HENT: Dry mucous membranes. RESPIRATORY: Clear to auscultation bilaterally. No wheezing, rales, or rhonchi. CARDIOVASCULAR: Regular rate and rhythm. No murmurs. ABDOMEN: Soft, moderate diffuse tenderness to palpation, and non-distended. Normal bowel sounds. EXTREMITIES: No edema. Non-tender. SKIN: Warm, dry. NEUROLOGIC: A/O x3. No focal neurological deficits. PSYCHIATRIC: Cooperative. Appropriate but flat mood and affect. Results & Data Results & Data ([facility]) Vital Signs (Past 12 Hours) Vital Signs Temp Pulse Resp BP Pulse Ox 02/08/21 07:18 36.6 C 67 16 133/82 93 Resident Activity Tracking Resident Involvement: Resident Care Provided Care Provided: Adult Hospital Medicine
[2021-02-08] MEDS: fentaNYL 25 MCG/HR TDSY TD SCH (15:18)
[2021-02-08] MEDS ORDERED: PROCHLORPERAZINE 5 MG in SYRINGE 4 ML IV PRN ×2 (15:27→15:31)
[2021-02-08] MEDS: CHECK fentaNYL PATCH PLACEMENT SCH ×2 (15:45→23:06)
[2021-02-08] MEDS ORDERED: APREPITANT 40 MG CAP PO ONE (15:45)
[2021-02-08] MEDS: ONDANSETRON INJ 2 MG/ML 2 ML VIAL IV SCH ×2 (15:47→21:26)
--- NOTE | 2021-02-08 15:59 | Radiation OncologyConsultation ---
Date of Consultation February 08, 2021 Assessment & Plan (1) Pancreatic adenocarcinoma: Assessment: Mr. Negrete is a 45-year-old gentleman who presents with unresectable/locally advanced pancreatic cancer versus metastatic pancreatic cancer who recently started FOLFIRINOX chemotherapy under the supervision of Dr. Armenta. Of note, the patient was receiving antibiotics due to a hepatic abscess. The patient most recently started FOLFIRINOX chemotherapy on 02/01/2021. The patient has been admitted to the hospital due to nausea/vomiting and some abdominal pain. Is been consulted to address palliative radiation therapy role. Recommendation: At this point, I do not believe there is a role for palliative external beam radiation therapy. The patient's pain should be managed with pain medications. The goal for the patient should be to continue on with systemic chemotherapy underneath the supervision of Dr. Armenta. In the future, the patient may be a candidate for palliative external beam radiation therapy if his pain is refractory to pain medications and chemotherapy. I have spoken with Dr. Armenta who is in agreement with this plan. Plan: 1. No role for radiation therapy at this time. 2. Pain management as per primary medical team. 3. Continue systemic therapy in the outpatient setting. 4. Defer all other medical management to primary team. History of Present Illness Attending Physician: Sam Murdock DO History of Present Illness 12/18/2020. CT of chest/abdomen/pelvis. Impression: 3.0 cm pancreatic head mass concerning for pancreatic adenocarcinoma. Multiple low-density liver lesions including a dominant 6.6 cm left hepatic lobe lesion compatible with metastatic disease. Small bilateral major fissure of subpleural pulmonary nodules which may represent an incidental intrapulmonary lymph nodes although metastatic disease difficult to completely exclude. Moderate spinal megaly. Bilateral nonobstructing nephrolithiasis. 12/19/2020. MRI of abdomen with and without contrast. Impression: There is a locally advanced 3.3 x 2.6 cm pancreatic mass located at the head neck junction of the pancreas. The lesion results in moderate narrowing of the extrahepatic portal vein. In addition there is abnormal soft tissue density completely surrounding the proximal 2.3 cm of the common hepatic artery. A few nonspecific peripancreatic lymph nodes are present. There is a 6.2 x 5.4 cm predominantly cystic lesion in the lateral segment of the left lobe of the liver with some i nternal septations. Although malignancy cannot be excluded, in a patient who is febrile with an elevated white blood cell count a primary consideration is hepatic abscess. Aspiration/biopsy recommended for further evaluation. There are multiple subcentimeter lesions in the liver potentially small metastasis. 12/23/2020. CT of abdomen/pelvis with contrast. Impression: Stable pancreatic head 1.6 cm lesion for pancreatic ductal adenocarcinoma with tumor encasement of the common hepatic and distal celiac artery. Decreasing in size now 4 cm left hepatic lobe abscess with drainage catheter in satisfactory position. Multiple stable bilobar hypervascular hepatic lesions concerning for metastasis or less likely small abscesses. 12/24/2020. Patient diagnosed with pancreatic cancer. Diagnosis and work-up completed at [facility]. Patient referred to [facility] for chemotherapy. 12/24/2020. Fine-needle aspiration of pancreatic head mass. Positive for malignancy. Adenocarcinoma. 12/25/2020. Fine-needle aspiration of liver. Negative for malignant cells. 12/29/2020 to 12/31/2020. Patient admitted to [facility] for tertiary care regarding hepatic liver abscess. 01/04/2021. Medical oncology consultation with Dr. Armenta recommendation is to proceed with FOLFIRINOX chemotherapy for locally advanced/unresectable pancreatic cancer versus metastatic pancreatic cancer. 02/01/2021. Patient started on FOLFIRINOX chemotherapy. 02/07/2021. Patient admitted to [facility]. Patient presents with vomiting and abdominal pain. 02/07/2021. CT of abdomen/pelvis. IMPRESSION: 1. Significantly suboptimal examination lateral and IV contrast. 2. There are no acute infectious or inflammatory findings in the abdomen or pelvis. 3. Infiltrative low-attenuation mass lesion is suggested in the pancreatic head, likely corresponding to the reported history of pancreatic cancer. 4. There are numerous (greater than 10) low attenuation hepatic lesions. These are highly suspicious for multifocal hepatic metastatic disease. 5. Enlarged upper abdominal lymph node is also likely neoplastic. 6. Bilateral nephrolithiasis. 7. Mild colonic diverticulosis without CT evidence of acute diverticulitis. 8. Additional findings as above. 02/07/2021. Gastroenterology consultation. Recommendation is for supportive care. Continue antibiotics. Allergies Allergy/AdvReac Type Severity Reaction Status Date / Time No Known Allergies Allergy Unverified 02/07/21 13:56 Home Medications Medication Instructions Recorded Confirmed Type acetaminophen [Tylenol Extra 1,000 mg PO Q8H PRN 01/03/21 02/07/21 History Strength] amoxicillin 500 mg capsule 500 mg PO BID 01/28/21 02/07/21 History ibuprofen 800 mg PO Q6H PRN 01/28/21 02/07/21 History oxycodone 10 mg tablet 10 mg PO Q4H PRN 01/28/21 02/07/21 History lactobacillus combination no.4 3,000 mmu cells PO QAM 02/07/21 02/07/21 History [Probiotic] Patient History Medical History Hepatic abscess Kidney stones no surgerical intervention Pancreatic adenocarcinoma diagnosed 12/2020 Surgical History H/O laparoscopy 12/2020 at [facility]. to drain Hepatic abscess and drain placed. Hx of surgical biopsy pancreatic cancer S/P right rotator cuff repair Family History Other No family history of adverse response to anesthesia Social History Smoking Status: Former smoker Tobacco Type: Cigarettes packs per day: 1; Years Smoked: 25; Second Hand Exposure: No; Do You Dip or Chew Tobacco: No; Tobacco Cessation Education Requested by Patient: No Hx Alcohol Use: No Hx Substance Use: No Preferred Language: Maori Communication Ability: Effective [employer] Required: No Beliefs That Will Affect Care: None Current Living Situation: Spouse and Family Current Living Situation Comment: Spouse and 1 child. How many Children do You have: 3 Other Information That Helps Us Care for You: No Feels Safe at Home: Yes Safety Concerns: Feels Safe At This Time Assistive Devices: None Assistive Devices Comment: Glasses for reading, not with pt. Review of Systems Review of Systems: Patient continues to have some emesis. Patient also does have some right upper quadrant abdominal pain. Physical Exam Constitutional: + ill appearing Psychiatric: A+Ox3, euthymic affect
[2021-02-08] MEDS ORDERED: LIDOCAINE 5% 1 PATCH TD SCH (18:45)
--- NOTE | 2021-02-08 18:46 | Billing Data ---
Date of Service February 08, 2021 Coding Level of Care Code 40265 Subseq Hosp Care Lvl 3
[2021-02-08] MEDS: LACTATED RINGER'S 1,000 ML IV SCH (19:27)
[2021-02-08] MEDS: ENOXAPARIN INJ 40 MG/0.4 ML SYR SQ SCH (21:26)
[2021-02-09] MEDS: HYDROmorphone INJ 1 MG/ML SYRINGE IV PRN ×5 (04:31→19:23)
[2021-02-09] MEDS: ONDANSETRON INJ 2 MG/ML 2 ML VIAL IV SCH ×2 (04:31→08:47)
[2021-02-09] MEDS: LACTATED RINGER'S 1,000 ML IV SCH ×2 (05:43→17:44)
[2021-02-09 06:18] LABS: Hematocrit (blood only) 31.4 % (42-52); Hemoglobin 10.8 g/dL (14.0-18.0); Mean Corpuscular Hemoglobin 29.5 pg (25-34); Mean Corpuscular Hgb Conc 34.4 g/dL (32-36); Mean Corpuscular Volume 85.8 fL (80-100); RDW Standard Deviation 40.9 fL (36.4-46.3); Red Blood Count 3.66 M/uL (4.7-6.1); White Blood Count 4.13 K/uL (4.8-10.8)
[2021-02-09 06:27] LABS: Mean Platelet Volume 9.9 fL (7.4-10.4); Platelet Count 60 K/uL (130-400)
[2021-02-09 06:39] LABS: Albumin Level 2.7 gm/dl (3.4-5.0); BUN Creatinine Ratio 19.1 (10-20); Calcium 8.2 mg/dl (8.5-10.1); Creatinine Clr Calc Pharmacy 135.3 ml/min; Est GFR (Non-African American) 105.3 ml/min; Potassium 3.7 mmol/L (3.5-5.1)
[2021-02-09 06:42] LABS: Albumin Globulin Ratio 0.9 (0.9-2); Bilirubin,Total 0.6 mg/dl (0.2-1); Total Protein 5.7 gm/dl (6.4-8.2)
[2021-02-09 06:50] LABS: Basophils # (auto) 0.01 K/uL (0-0.2); Basophils % (auto) 0.2 %; Eosinophils # (auto) 0.07 K/uL (0-0.5); Eosinophils % (auto) 1.7 %; Immature Granulocytes # (auto) 0.01 K/uL (0.00-0.02); Immature Granulocytes % (auto) 0.2 %; Lymphocytes # (auto) 1.04 K/uL (1.2-3.4); Lymphocytes % (auto) 25.2 %; Monocytes # (auto) 0.14 K/uL (0.11-0.59); Monocytes % (auto) 3.4 %; Neutrophils # (auto) 2.86 K/uL (1.4-6.5); Neutrophils % (auto) 69.3 %; RBC Morphology Unremarkable
[2021-02-09] MEDS: CHECK fentaNYL PATCH PLACEMENT SCH ×3 (07:50→23:46)
[2021-02-09] MEDS: ADVANCED PROBIOTIC 1250 MG CAPSULE PO SCH (07:54)
[2021-02-09] MEDS: AMOXICILLIN 500 MG CAP PO SCH ×2 (07:54→20:22)
[2021-02-09] MEDS: PANTOprazole 40 MG TAB PO SCH ×2 (07:54→20:22)
[2021-02-09] MEDS: FAMOTIDINE 20 MG in SYRINGE 3 ML IV SCH (07:55)
--- NOTE | 2021-02-09 09:51 | Hospitalist Progress Note ---
Date of Service February 09, 2021 Assessment & Plan (1) Pancreatic adenocarcinoma: Mr. Negrete is a 45-year-old male a history of metastatic pancreatic adenocarcinoma with liver metastases, nephrolithiasis, hemorrhoids, and a history of a liver abscess s/p surgical intervention/drain at [facility] who presents acutely to [facility] with acute dehydration, abdominal pain, and intractable nausea and vomiting. Metastatic Pancreatic Adenocarcinoma w/ Intractable Nausea, Vomiting, and Abdominal Pain - CT A/P 02/07: - Numerous low-attenuation hepatic lesions highly suspicious for multifocal hepatic metastatic disease - infiltrative low-attenuation mass lesion is suggested in the pancreatic head likely corresponding to the reported history of pancreatic cancer - Enlarged upper abdominal lymph node is also likely neoplastic - Bilateral nephrolithiasis - Mild colonic diverticulosis without CT evidence of acute diverticulitis - Pain and nausea control - Nausea control with: Zofran 4mg IV q6h scheduled, one dose of Emend 40mg trialed today, Reglan 5mg q6h prn, Compazine 5mg q6h prn -Added Dilaudid 4 mg p.o. every 4 hours prn--we will try this before Dilaudid IV as we plan for a pain regimen that is compatible with home - Oxycodone 10mg po q4h prn, Dilaudid 1mg IV q1h prn, Ibuprofen 800mg q6h prn, and Tylenol 650mg q4h prn - Started on Fentanyl patch 25 mcg TD q3d started today (02/08) - Continue IV famotidine 20mg q12h; also started on Protonix 40mg po BID (02/08) - Continue SL nitroglycerin prn for esophageal spasms or abdominal colic - Continue home probiotic - EKG 02/07 w/ SR w with PACs, QTc 462 - Full diet--tolerating well currently. - Continue Marinol for appetite stimulation at 2.5mg BID--plan to continue increasing as tolerated - GI consult for intractable n/v/abd pain. Appreciate their recommendations: poor prognosis, no EGD at this time, continue supportive management - Radiation oncology consulted--no role for radiation treatment at this point - Patient is currently receiving his chemotherapy treatments through the [facility] [place] w/ Dr. Armenta - Regimen is FOLFIRINOX protocol every 2 weeks (this includes Fluorouracil, Leucovorin, Irinotecan, Oxaliplatin) - His last chemotherapy treatment was on 02/01/21; currently scheduled for next oncology appointment in 1 week on 02/15/21 Acute Dehydration - Rehydrated with IVF - Will continue to monitor BMP FENGI: Regular diet DVT PPx: Lovenox 40mg SQ q24h Dispo: Medsurg Code status: FULL CODE (2) Pancreatic cancer metastasized to liver: (3) Acute dehydration: (4) Intractable nausea and vomiting: Admission and Anticipated Discharge Date Admission Date: February 08, 2021 Supervising Physician Co-Signing Physician Notes I personally examined the patient and verified all kwong points of history and exam, discussed case, and agree with decision making with Dr Anne. Was able to eat some of breakfast. Pain under better control overall. Vitals noted, in general he is laying very still quite fatigued but no distress.. HEENT normocephalic atraumatic mucous membranes are fortunately moist. Breathing unlabored no accessory muscle use good effort. Extremities show no cyanosis or clubbing. Neuro shows no focal deficits. Failure to thrive/intractable pain/acute protein calorie malnutrition in the context of metastatic pancreatic cancerunfortunately his pain seems to be purely or at the very least very heavily cancer driven. Appreciate radiation oncology inputappears no clear role for XRT at this time. However, patient seems to be doing better with initiation of fentanyl patch, will try to lead with p.o. Dilaudid and only utilize IV if needed, try to work towards a plan he can go home with. Continue aggressive acid suppression, Zofran, Marinol. Otherwise as above. Subjective Patient reports feeling better today. Seen at bedside eating regular food. Says he has been tolerating fairly well--had crackers & peanut butter overnight without n/v. Want to try to eat more this AM. Says pain currently well controlled on meds. Review of Systems Review of Systems: See subjective Physical Exam Physical Exam: GENERAL: Ill appearing male laying in bed in no acute distress. Appears stated age. Vital signs reviewed as above. EYES: EOMI. Anicteric sclerae. HENT: Dry mucous membranes. RESPIRATORY: Clear to auscultation bilaterally. No wheezing, rales, or rhonchi. CARDIOVASCULAR: Regular rate and rhythm. No murmurs. ABDOMEN: Soft, nontender, and non-distended. Normal bowel sounds. EXTREMITIES: No edema. Non-tender. SKIN: Warm, dry. NEUROLOGIC: A/O x3. No focal neurological deficits. PSYCHIATRIC: Cooperative. Appropriate but flat mood and affect. Results & Data Results & Data ([facility]) Vital Signs (Past 12 Hours) Vital Signs Temp Pulse Resp BP Pulse Ox 02/09/21 07:25 36.8 C 65 19 110/72 94 02/08/21 22:22 36.7 C 75 16 111/67 94 Resident Activity Tracking Resident Involvement: Resident Care Provided Care Provided: Adult Hospital Medicine
[2021-02-09] MEDS: HYDROmorphone HCL 2 MG TAB PO PRN (14:03)
[2021-02-09] MEDS ORDERED: ONDANSETRON INJ 2 MG/ML 2 ML VIAL IV PRN (15:33)
--- NOTE | 2021-02-09 15:34 | Billing Data ---
Date of Service February 09, 2021 Coding Level of Care Code 21986 Subseq Hosp Care Lvl 3
[2021-02-09] MEDS: FAMOTIDINE 20 MG TAB PO SCH (20:22)
[2021-02-09] MEDS: POLYETHYLENE (MIRALAX) 17 GM PACK PO SCH (20:22)
[2021-02-09] MEDS: LIDOCAINE 5% 1 PATCH TD SCH (20:23)
[2021-02-09] MEDS: ENOXAPARIN INJ 40 MG/0.4 ML SYR SQ SCH (20:23)
[2021-02-10] MEDS: HYDROmorphone INJ 1 MG/ML SYRINGE IV PRN ×2 (04:24→05:38)
[2021-02-10] MEDS: LACTATED RINGER'S 1,000 ML IV SCH ×2 (04:26→16:57)
[2021-02-10 04:49] LABS: Hematocrit (blood only) 29.2 % (42-52); Hemoglobin 10.1 g/dL (14.0-18.0); Mean Corpuscular Hemoglobin 29.5 pg (25-34); Mean Corpuscular Hgb Conc 34.6 g/dL (32-36); Mean Corpuscular Volume 85.4 fL (80-100); RDW Standard Deviation 40.6 fL (36.4-46.3); Red Blood Count 3.42 M/uL (4.7-6.1); White Blood Count 3.16 K/uL (4.8-10.8)
[2021-02-10 05:05] LABS: Eosinophils % (auto) 3.2 %; Lymphocytes # (auto) 0.94 K/uL (1.2-3.4); Lymphocytes % (auto) 29.7 %; Mean Platelet Volume 9.4 fL (7.4-10.4); Monocytes # (auto) 0.14 K/uL (0.11-0.59); Monocytes % (auto) 4.4 %; Neutrophils # (auto) 1.98 K/uL (1.4-6.5); Neutrophils % (auto) 62.7 %; Platelet Count 57 K/uL (130-400)
[2021-02-10 05:13] LABS: BUN Creatinine Ratio 15.3 (10-20); Calcium 8.4 mg/dl (8.5-10.1); Creatinine Clr Calc Pharmacy 142.2 ml/min; Est GFR (African American) 124.6 ml/min; Est GFR (Non-African American) 107.5 ml/min
[2021-02-10] MEDS: CHECK fentaNYL PATCH PLACEMENT SCH ×3 (09:11→23:13)
[2021-02-10] MEDS: AMOXICILLIN 500 MG CAP PO SCH ×2 (09:11→22:01)
[2021-02-10] MEDS: FAMOTIDINE 20 MG TAB PO SCH ×2 (09:11→22:00)
[2021-02-10] MEDS: ADVANCED PROBIOTIC 1250 MG CAPSULE PO SCH (09:12)
[2021-02-10] MEDS: PANTOprazole 40 MG TAB PO SCH ×2 (09:12→22:00)
[2021-02-10] MEDS: POLYETHYLENE (MIRALAX) 17 GM PACK PO SCH ×2 (09:13→22:04)
[2021-02-10] MEDS: HYDROmorphone HCL 2 MG TAB PO PRN ×2 (09:21→20:01)
--- NOTE | 2021-02-10 09:47 | Hospitalist Progress Note ---
Date of Service February 10, 2021 Assessment & Plan (1) Pancreatic adenocarcinoma: Mr. Negrete is a 45-year-old male a history of metastatic pancreatic adenocarcinoma with liver metastases, nephrolithiasis, hemorrhoids, and a history of a liver abscess s/p surgical intervention/drain at [facility] who presents acutely to [facility] with acute dehydration, abdominal pain, and intractable nausea and vomiting. Intractable nausea and vomiting secondary to metastatic pancreatic chai nocarcinoma -CT abdomen/pelvis with evidence of hepatic metastasis of known pancreatic cancer, BL nephrolithiasis, diverticulosis without evidence of diverticulitis -Patient is currently receiving his chemotherapy treatments through the [facility] (sees Dr. Armenta) -Regimen is FOLFIRINOX protocol every 2 weeks (i.e. fluorouracil, leucovorin, irinotecan, oxaliplatin) -Last received chemotherapy on 02/01; next oncology appointment is on 02/15 -GI consulted: poor prognosis, no EGD at this time, continue supportive management -Radiation oncology consulted: no role for radiation treatment at this time -Continue famotidine, protonix, home probiotic -Continue dronabinol for appetite stimulation - currently 5mg PO bid, increase dose if indicated Nausea control: -Scheduled: zofran 4mg IV q6h -As needed: reglan 5mg q6h, compazine 5mg q6h Pain control: -Continue oxycodone 10mg q4h prn, ibuprofen 800mg q6h prn, and Tylenol 650mg q4h prn, oral dilauded (details below) -Titrating oral dilauded dose with hope to eliminate need for breakthrough IV pain control; dose increased (on 02/10) from 4mg q4h to 6mg q4h -Continue fentanyl patch 25mcg q72h (started 02/08) -Continue dilauded 1mg IV q1h for breakthrough pain -Continue sublingual nitroglycerin prn for esophageal spasms, abdominal colic Thrombocytopenia -Likely secondary to hemodilution, hypersplenism due to ongoing abdominal pathology, platelet sequestration -Do not suspect this is secondary to hit, but we will hold lovenox due to risk of bleeding while anticoagulated in setting of thrombocytopenia -Continue to monitor Insomnia -Continue ambien 5mg PO qhs FENGI: regular diet DVT ppx: lovenox Dispo: med/surg Code status: full code (2) Pancreatic cancer metastasized to liver: (3) Acute dehydration: (4) Intractable nausea and vomiting: Admission and Anticipated Discharge Date Admission Date: February 08, 2021 Supervising Physician Co-Signing Physician Notes I personally examined the patient and verified all kwong points of history and exam, discussed case, and agree with decision making with Dr Bailey Eating better, does still need IV pain meds some, but getting to better control with oral meds. Vitals noted, in general he is laying very still quite fatigued but no distress.. HEENT normocephalic atraumatic mucous membranes are fortunately moist. Breathing unlabored no accessory muscle use good effort. Abdomen soft but he does have epigastric tenderness with mild degree of voluntary guarding. Extremities show no cyanosis or clubbing. Neuro shows no focal deficits. Failure to thrive/intractable pain/acute protein calorie malnutrition in the context of metastatic pancreatic cancerunfortunately his pain seems to be purely or at the very least very heavily cancer driven. Appreciate radiation oncology inputappears no clear role for XRT at this time. Pain improving, although does not quite seem good enough to go home yetincrease p.o. Dilaudid to 6 mg to hopefully affect better pain relief orally, consider the need to increase fentanyl patch if pain persists. Keep IV pain meds as a backup, low threshold to start Lyrica or gabapentin in the near future. Continue aggressive acid suppression, Zofran, Marinol. Otherwise as above. Subjective Patient seen and evaluated at bedside this morning. No acute events overnight. Patient tolerated a bit of breakfast today but did not have an appetite around lunchtime. No nausea or vomiting. Pain currently well-controlled. Patient denies CP, SOB, lightheadedness, dizziness, weakness, confusion, dysuria, diarrhea, or other symptoms. Patient received dilauded 4mg PO around 14:00 yesterday (02/09) and pain continued to be poorly-controlled subsequently required a few additional doses of dilauded 1mg IV that afternoon and evening. Review of Systems Review of Systems: See HPI Physical Exam Physical Exam: Constitutional: tired-appearing, laying in bed, cooperative HEENT: no scleral icterus CV: regular rhythm, no murmur appreciated, extremities well-perfused Resp: CTABL, no wheezes/rales/rhonchi appreciated, no increased work of breathing GI: soft, nondistended, mild/moderately tender, BS present Skin: warm, dry, no rash appreciated Neuro: AOx4, no focal neurological deficits appreciated Psych: cooperative, pleasant, appropriate rate/volume/quantity of speech Results & Data Results & Data ([facility]) Vital Signs (Past 12 Hours) Vital Signs Temp Pulse Resp BP Pulse Ox 02/10/21 07:04 36.5 C 65 16 115/76 92 02/09/21 22:52 36.9 C 73 14 108/72 94 Resident Activity Tracking Resident Involvement: Resident Care Provided Care Provided: Adult Hospital Medicine
[2021-02-10] MEDS: oxyCODONE HCL IR 5 MG TAB (IMMEDIATE RELEASE) PO PRN ×2 (11:49→15:29)
--- NOTE | 2021-02-10 15:44 | Billing Data ---
Date of Service February 10, 2021 Coding Level of Care Code 45997 Subseq Hosp Care Lvl 3
--- NOTE | 2021-02-10 15:44 | Billing Data ---
Date of Service February 10, 2021 Coding Level of Care Code 41866 Subseq Hosp Care Lvl 3
[2021-02-10] MEDS: LIDOCAINE 5% 1 PATCH TD SCH (20:05)
[2021-02-11] MEDS: LACTATED RINGER'S 1,000 ML IV SCH (03:57)
[2021-02-11] MEDS: HYDROmorphone INJ 1 MG/ML SYRINGE IV PRN (04:50)
--- NOTE | 2021-02-11 06:55 | Hospitalist Progress Note ---
Date of Service February 11, 2021 Assessment & Plan (1) Pancreatic adenocarcinoma: Mr. Negrete is a 45 y/o M w/ metastatic (liver mets) pancreatic adenocarcinoma on chemo who presented w/ a month of dehydration, N/V, and intractable abd pain. Intractable abdominal pain secondary to metastatic pancreatic adenocarcinoma -CT abdomen/pelvis with evidence of hepatic metastasis of known pancreatic cancer, BL nephrolithiasis, diverticulosis without evidence of diverticulitis -Outpt chemo regimen FOLFIRINOX q2w, last received on 02/01/21 -Patient is currently receiving his chemotherapy treatments through the [facility] (sees Dr. Armenta) -GI consulted: poor prognosis, no EGD at this time, continue supportive management -Radiation oncology consulted: no role for radiation treatment at this time -Continue famotidine, protonix, home probiotic, dronabinol. -Continue MgOH for constipation. Added Miralax 1 packet PRN. -Check CMP in AM. Nausea, controlled: -zofran 4mg IV q6hprn -prn reglan and prn compazine discontinued Pain control: - tylenol, ibuprofen. 02/10/21 narcotic regimen: oxycodone 10mg q4h prn, oral Dilaudid 6 mg q4hprn, fentanyl patch 25mcg q72h (started 02/08), IV Dilaudid 1 mg IV PRN for breakthrough pain. - 02/11/21 curbsided palliative medicine. - d/c IV Dilaudid. - Decrease oral Dilaudid from 6 mg to 2 mg q4hprn. - Increased fentanyl patch from 25mcg to 50 mcg q72h. - will monitor for oversedation. added fall precautions. PRN naloxone. - hold off on adjunctive Lyrica because of sedation concerns. - consider SNRI in jail - oxycodone 10mg changed from q4hprn to 18hprn. will hold overnight of 02/11-02/12 to monitor response and to avoid oversedation - can consider celiac plexus block if pain continues uncontrolled -Continue sublingual nitroglycerin prn for esophageal spasms, abdominal colic Thrombocytopenia - considered chemotherapy side effect vs HIT - Plts 166->70 02/07-02/08. Plts have stayed low (~60) since. SQ Lovenox was d/c'd on 02/10 - 02/11/[address] Armenta, patient's outpatient heme/onc physician, regarding thrombocytopenia - time course of abrupt decline in platelet count 1 day after starting ppx Lovenox is more suggestive of HIT type 1 - chemo side effect after 1.5 wk is possible, but less consistent w/ sudden abrupt decline - HIT type 1 is less likely thrombotic than type 2 - considered DVT ppx options. considered Eliquis, but opted for fondaparinux as Eliquis would be off-label use and higher concern for bleed/reversibility - check PF4 Ab in AM - check daily CBC Severe protein-calorie malnutrion - Will discuss getting dietary consult. Insomnia -Continue Ambien 5mg PO qhs. can cause sedation, but will not discontinue abruptly FENGI: regular diet. Tolerated breakfast after dronabinol, so will stop IV fluids DVT ppx: held->start 2.5 mg PO daily fondaparinux on 02/11 PM. Dispo: med/surg. dispo dependent on adjustment of pain regimen Code status: full code (2) Pancreatic cancer metastasized to liver: (3) Acute dehydration: (4) Intractable nausea and vomiting: Admission and Anticipated Discharge Date Admission Date: February 08, 2021 Supervising Physician Co-Signing Physician Notes Resident Physician Supervision Note: I independently interviewed and examined the patient and verified the kwong history and physical, reviewed labs and image studies and agree with resident Dr. Ogden findings and care plan. Subjective Patient states pain is about the same as yesterday. No other complaints other than abd pain (worst at RUQ). Feels not ready from pain standpoint and required 1mg of IV Dilaudid around 4am. He states is is eating and drinking ok. He has some intermittent diarrhea after meals, but is passing BMs. Review of Systems Review of Systems: Constitutional: Denies fever, chills Eyes: Denies blurry vision, vision changes Cardiovascular: Denies chest pain, palpitations Respiratory: Denies shortness of breath Gastrointestinal: Denies nausea, vomiting, constipation. + intermittent diarrhea. No bloody stool. Genitourinary: Denies urinary symptoms including dysuria Musculoskeletal: Denies weakness, muscle aches/pain, joint aches/pain Neurological: Denies headache, numbness, tingling, focal weakness Physical Exam Physical Exam: General: Grossly A&O. NAD. Cooperative. Appears sleepy. HEENT: Atraumatic, normocephalic. Pulm: CTAB. -wheezes, -rales, -rhonchi. No respiratory distress. Cardiac: RRR, -mrg. Abdominal: Soft, nondistended. Mild diffuse tenderness to palpation. +BS. Integ: port at L upper chest is nonerythematous Results & Data Results & Data ([facility]) Vital Signs (Past 12 Hours) Vital Signs Temp Pulse Resp BP Pulse Ox 02/10/21 22:38 37.2 C 73 18 145/98 H 96 Resident Activity Tracking Resident Involvement: Resident Care Provided Care Provided: Adult Hospital Medicine
[2021-02-11] MEDS: CHECK fentaNYL PATCH PLACEMENT SCH ×3 (07:38→22:39)
[2021-02-11] MEDS: HYDROmorphone HCL 2 MG TAB PO PRN ×2 (07:47→12:10)
[2021-02-11 08:29] LABS: BUN Creatinine Ratio 8.7 (10-20); Calcium 8.6 mg/dl (8.5-10.1); Est GFR (Non-African American) 110.5 ml/min; Potassium 3.7 mmol/L (3.5-5.1)
[2021-02-11] MEDS: POLYETHYLENE (MIRALAX) 17 GM PACK PO SCH ×2 (08:31→19:48)
[2021-02-11] MEDS: ADVANCED PROBIOTIC 1250 MG CAPSULE PO SCH (08:31)
[2021-02-11] MEDS: PANTOprazole 40 MG TAB PO SCH ×2 (08:31→19:48)
[2021-02-11] MEDS: AMOXICILLIN 500 MG CAP PO SCH ×2 (08:31→19:48)
[2021-02-11] MEDS: FAMOTIDINE 20 MG TAB PO SCH ×2 (08:31→19:48)
[2021-02-11] MEDS: oxyCODONE HCL IR 5 MG TAB (IMMEDIATE RELEASE) PO PRN (14:07)
[2021-02-11 14:24] LABS: Hematocrit (blood only) 30.5 % (42-52); Hemoglobin 10.6 g/dL (14.0-18.0); Mean Corpuscular Hemoglobin 29.8 pg (25-34); Mean Corpuscular Hgb Conc 34.8 g/dL (32-36); Mean Corpuscular Volume 85.7 fL (80-100); RDW Standard Deviation 40.6 fL (36.4-46.3); Red Blood Count 3.56 M/uL (4.7-6.1); White Blood Count 3.29 K/uL (4.8-10.8)
[2021-02-11 14:30] LABS: Mean Platelet Volume 9.4 fL (7.4-10.4); Platelet Count 63 K/uL (130-400)
[2021-02-11 14:49] LABS: Eosinophils # (auto) 0.11 K/uL (0-0.5); Eosinophils % (auto) 3.3 %; Lymphocytes % (auto) 21.3 %; Monocytes # (auto) 0.19 K/uL (0.11-0.59); Monocytes % (auto) 5.8 %; Neutrophils # (auto) 2.29 K/uL (1.4-6.5); Neutrophils % (auto) 69.6 %
[2021-02-11] MEDS: fentaNYL 25 MCG/HR TDSY TD SCH (15:26)
[2021-02-11] MEDS ORDERED: HYDROmorphone HCL 2 MG TAB PO PRN (16:13)
[2021-02-11] MEDS ORDERED: NALOXONE HCL 0.4 MG/1 ML VIAL/CARP IV PRN (16:15)
[2021-02-11] MEDS ORDERED: POLYETHYLENE (MIRALAX) 17 GM PACK PO PRN (16:15)
[2021-02-11] MEDS ORDERED: oxyCODONE HCL IR 5 MG TAB (IMMEDIATE RELEASE) PO PRN (16:59)
[2021-02-11] MEDS ORDERED: fentaNYL 50 MCG/HR TDSY TD SCH (17:00)
[2021-02-11] MEDS: FONDAPARINUX 2.5 MG/0.5 ML SYR SQ SCH (17:27)
[2021-02-11] MEDS ORDERED: FONDAPARINUX 2.5 MG/0.5 ML SYR SQ SCH (18:00)
[2021-02-11] MEDS: LIDOCAINE 5% 1 PATCH TD SCH (19:47)
[2021-02-11] MEDS ORDERED: APIXABAN 2.5 MG TAB PO SCH (21:00)
[2021-02-12 07:29] LABS: Hematocrit (blood only) 30.6 % (42-52); Hemoglobin 10.3 g/dL (14.0-18.0); Mean Corpuscular Hemoglobin 29.6 pg (25-34); Mean Corpuscular Hgb Conc 33.7 g/dL (32-36); Mean Corpuscular Volume 87.9 fL (80-100); RDW Coefficient of Variation 13.2 % (11.5-14.5); RDW Standard Deviation 42.8 fL (36.4-46.3); Red Blood Count 3.48 M/uL (4.7-6.1); White Blood Count 2.87 K/uL (4.8-10.8)
[2021-02-12 07:30] LABS: Mean Platelet Volume 9.9 fL (7.4-10.4); Platelet Count 73 K/uL (130-400)
--- NOTE | 2021-02-12 07:37 | Hospitalist Progress Note ---
Date of Service February 12, 2021 Assessment & Plan (1) Pancreatic adenocarcinoma: Mr. Negrete is a 45 y/o M w/ metastatic (liver mets) pancreatic adenocarcinoma on chemo who presented w/ a month of dehydration, N/V, and intractable abd pain. Intractable abdominal pain secondary to metastatic pancreatic adenocarcinoma -CT abdomen/pelvis with evidence of hepatic metastasis of known pancreatic cancer, BL nephrolithiasis, diverticulosis without evidence of diverticulitis -Outpt chemo regimen FOLFIRINOX q2w, last received on 02/01/21 - [facility] [place] (sees Dr. Armenta) -GI consulted: poor prognosis, no EGD at this time, continue supportive management -Radiation oncology consulted: no role for radiation treatment at this time -Continue famotidine, protonix, home probiotic, dronabinol. -Continue MgOH for constipation. Miralax 1 packet daily PRN. Nausea, controlled: -zofran 4mg IV q6hprn Pain control: - 02/12/21 consulted palliative medicine. current regimen is fentanyl patch 50 mcg q72h and PO dilaudid 1 mg IV prn for breakthrough pain. added gabapentin 100mg PO TID. oxycodone prn discontinued -Continue sublingual nitroglycerin prn for esophageal spasms, abdominal colic - continue prn tylenol and ibuprofen - f/u w/ palliative as outpt - outpt referral to pain management for eval of celiac plexus block - dispo changed from 02/12 to likely 02/13; will assess how much of the PRN PO dilaudid is required overnight Thrombocytopenia - Chemotherapy induced vs HIT - considered chemotherapy side effect vs HIT - Plts 166->70 02/07-02/08. Plts have stayed low (~60) since. SQ Lovenox was d/c'd on 02/10. Plt 73 on 02/12, some improvement - 02/11/[address] Armenta, patient's outpatient heme/onc physician, regarding thrombocytopenia - time course of abrupt decline in platelet count 1 day after starting ppx Lovenox is more suggestive of HIT type 1 - chemo side effect after 1.5 wk is possible, but less consistent w/ sudden abrupt decline - HIT type 1 is less likely thrombotic than type 2 - considered DVT ppx options. considered Eliquis, but opted for fondaparinux as Eliquis would be off-label use and higher concern for bleed/reversibility - PF4 Ab sent - check daily CBC Leukopenia, downtrending - 2.87 on 02/12 - most likely be secondary to chemotherapy - check daily CBC Severe protein-calorie malnutrition - Consulted dietary Insomnia -Continue Ambien 5mg PO qhs. can cause sedation, but will not discontinue abruptly FENGI: regular diet. no IVF DVT ppx: started 2.5 mg PO daily fondaparinux on 02/11 PM. Dispo: med/surg. tentative dispo 02/13 Code status: full code (2) Pancreatic cancer metastasized to liver: (3) Acute dehydration: (4) Intractable nausea and vomiting: Admission and Anticipated Discharge Date Admission Date: February 08, 2021 Supervising Physician Co-Signing Physician Notes Resident Physician Supervision Note: I independently interviewed and examined the patient and verified the kwong history and physical, reviewed labs and image studies and agree with resident Dr. Ogden findings and care plan. Subjective Patient states his pain is 3/10, w/ improvement from yesterday. He has ache at lower abd. No N/V. He did not require PRN pain meds overnight. The increased dose of the fentanyl patch from 25mcg to 50mcg appears to be working well. Patient's appetite remains poor. PM update: Patient ate half of breakfast. His pain in the afternoon is worse than this morning and is a 6/10. He had received 2mg of PO dilaudid at 11am, but had otherwise not received PRNs. Review of Systems Review of Systems: Constitutional: Denies fever, chills. + fatigue Eyes: Denies blurry vision, vision changes Cardiovascular: Denies chest pain, palpitations Respiratory: Denies shortness of breath Gastrointestinal: Denies nausea, vomiting, constipation, diarrhea. +BM. Genitourinary: Denies urinary symptoms including dysuria Musculoskeletal: Denies weakness, muscle aches/pain, joint aches/pain Neurological: Denies headache, numbness, tingling, focal weakness, dizziness Physical Exam Physical Exam: General: Grossly A&O. NAD. Cooperative. HEENT: Atraumatic, normocephalic. EOMI Pulm: CTAB. -wheezes, -rales, -rhonchi. No respiratory distress. Cardiac: RRR, -mrg. Radial pulses intact and symmetrical. Abdominal: Nondistended, soft. Mild diffuse TTP, worse at lower mid abd. No rebound or guarding. Msk: No calf tenderness or swelling Results & Data Results & Data ([facility]) Vital Signs (Past 12 Hours) Vital Signs Temp Pulse Resp BP Pulse Ox 02/11/21 22:43 37.2 C 73 17 129/86 95 Resident Activity Tracking Resident Involvement: Resident Care Provided Care Provided: Adult Hospital Medicine
[2021-02-12 07:59] LABS: Albumin Level 2.8 gm/dl (3.4-5.0); BUN Creatinine Ratio 7.8 (10-20); Calcium 8.7 mg/dl (8.5-10.1); Creatinine Clr Calc Pharmacy 156.3 ml/min; Eosinophils # (auto) 0.15 K/uL (0-0.5); Eosinophils % (auto) 5.2 %; Est GFR (African American) 129.5 ml/min; Est GFR (Non-African American) 111.7 ml/min; Immature Granulocytes # (auto) 0.01 K/uL (0.00-0.02); Immature Granulocytes % (auto) 0.3 %; Lymphocytes # (auto) 0.92 K/uL (1.2-3.4); Lymphocytes % (auto) 32.1 %; Monocytes # (auto) 0.18 K/uL (0.11-0.59); Monocytes % (auto) 6.3 %; Neutrophils # (auto) 1.61 K/uL (1.4-6.5); Neutrophils % (auto) 56.1 %; Potassium 3.5 mmol/L (3.5-5.1)
[2021-02-12 08:01] LABS: Albumin Globulin Ratio 0.9 (0.9-2); Bilirubin,Total 0.3 mg/dl (0.2-1); Globulin 3.2 gm/dl (2.5-4.0)
[2021-02-12] MEDS ORDERED: POTASSIUM CHLORIDE CRTAB 20 MEQ TABCR PO STA (08:31)
[2021-02-12] MEDS: CHECK fentaNYL PATCH PLACEMENT SCH ×2 (09:13→15:16)
[2021-02-12] MEDS: AMOXICILLIN 500 MG CAP PO SCH ×2 (09:15→21:03)
[2021-02-12] MEDS: ADVANCED PROBIOTIC 1250 MG CAPSULE PO SCH (09:15)
[2021-02-12] MEDS: FAMOTIDINE 20 MG TAB PO SCH ×2 (09:15→21:03)
[2021-02-12] MEDS: PANTOprazole 40 MG TAB PO SCH ×2 (09:15→21:03)
[2021-02-12] MEDS: POLYETHYLENE (MIRALAX) 17 GM PACK PO SCH ×2 (09:15→21:03)
--- NOTE | 2021-02-12 10:43 | Palliative Care Consultation ---
Date of Consultation February 12, 2021 Assessment & Plan (1) Palliative care encounter: Palliative Medicine was consulted to see this 45 year old Male who presented to the [facility] emergency department with dehydration, intractable nausea and vomiting that has aleena occurring pretty consistently over the past month and intractable abdominal pain. The patient has an unfortunate diagnosis of metastatic pancreatic adenocarcinoma with liver mets. He had a liver abscess surgically removed in [place] recently. He receives his cancer treatment through [facility] and locally sees Dr. Armenta. He receives Folfirinox bi-weekly with his last infusion taking place on 02/01/21. During this admission, he also has been noted to have thrombocytopenia with decreased platelets which is suspected to be chemo-induced. Palliative Medicine was consulted to assist with pain management. I discussed gently, overall goals of care through conversation. He explained that he is employed by [employer] and worked in the 'pablo and drivers' department. He has a , Melony, and three children: 2 boys, aged 20 and 18 and a daughter, 13 years old. He stated that his two older kids know about the extent of his illness, but they have not been as details with the 13 year old. He explained that he would like to continue chemotherapy treatment and does not want to proceed with any therapies here that would interfere with him receiving chemo. He was receptive to continuing seeing palliative medicine for continued goals of care conversation and pain management. Pt is a full code. I was able to talk to his , Melony, on the phone and updated her with the above and below. She was grateful for the call and is receptive to palliative medicine following him from a pain and goals perspective. She did say that he is typically an outdoorsy person and more upbeat than he is now. Melony works as a health aide at [employer] and usually works 7P-7A. When she is at work, the two older kids have really been helping out and staying with him. Provided Palliative Medicine phone number for her ([phone]). Discussed with the hospitalist team and will schedule outpatient appt for once he is discharged which is anticipated for today. (2) Pain, abdominal: Patient reports that the pain is becoming more manageable, and less constant. Exacerbating positions include lying flat and walking for long periods of time. Relieving positions are sitting upright with legs extended. Currently, he said pain was increasing throughout the morning, currently 5/10. I discussed the patients pain medication regimen with the rounding residents yesterday and some adjustments were made. The Fentanyl patch was increased to 50mcg yesterday and he has not required any breakthrough medications since 1200 noontime 02/11/2021. Per discussion with the residents and nursing, the patient is less sedated today compared to yesterday. Discussed adjuvant therapies with him. He is receptive to low dose Neurontin, of course keeping sedation in mind. -Start Neurontin 100 mg PO TID -Continue Fentanyl patch 50 mcg TD Q 3 days. -Discontinue Oxy IR -Decrease Dilaudid breakthrough to: Dilaudid 1 mg PO Q4 PRN Discussed additional treatment options including a consult with pain management to discuss the possibility of a celiac plexus block if pain continues uncontrolled. He indicated he has had a nerve block before in his right shoulder and he was receptive of this if necessary in the future. Discussed with the team and the plan is for outpatient consultation. (3) Nausea & vomiting: He reports that his nausea and vomiting has been resolved. He has Zofran 4 mg IV Q6 PRN ordered. Will change to PO for anticipated discharge. (4) Lack of appetite: Patient has lack of appetite. Currently on Marinol 5 mg PO BID and is tolerating. He has eaten 50% of his breakfast today. He said he usually does not eat meals until lunchtime normally. He said he likes crackers and half a sandwich as a snack, so I gave him 4 different kinds of crackers at his bedside. History of Present Illness Reason for Consultation: Pain Management Requesting Physician: Dr. Ogden Attending Physician: Nay Edwards MD History of Present Illness Palliative Medicine was consulted to see this 45 year old Male who presented to the [facility] emergency department with dehydration, intractable nausea and vomiting that has aleena occurring pretty consistently over the past month and intractable abdominal pain. The patient has an unfortunate diagnosis of metastatic pancreatic adenocarcinoma with liver mets. He had a liver abscess surgically removed in [place] recently. He receives his cancer treatment through [facility] and locally sees Dr. Armenta. He receives Folfirinox bi-weekly with his last infusion taking place on 02/01/21. During this admission, he also has been noted to have thrombocytopenia with decreased platelets which is suspected to be chemo-induced. Palliative Medicine was consulted to assist with pain management. Please see A/P for further details. Thanks for involving Palliative Medicine with this individual. Allergies Allergy/AdvReac Type Severity Reaction Status Date / Time No Known Allergies Allergy Unverified 02/07/21 13:56 Home Medications Medication Instructions Recorded Confirmed Type acetaminophen [Tylenol Extra 1,000 mg PO Q8H PRN 01/03/21 02/07/21 History Strength] amoxicillin 500 mg capsule 500 mg PO BID 01/28/21 02/07/21 History ibuprofen 800 mg PO Q6H PRN 01/28/21 02/07/21 History oxycodone 10 mg tablet 10 mg PO Q4H PRN 01/28/21 02/07/21 History lactobacillus combination no.4 3,000 mmu cells PO QAM 02/07/21 02/07/21 History [Probiotic] Patient History Medical History (Updated 02/12/21 @ 12:06 by NATHALIA Escalante) Hepatic abscess Kidney stones no surgerical intervention Lack of appetite Nausea & vomiting Pain, abdominal Palliative care encounter Pancreatic adenocarcinoma diagnosed 12/2020 Surgical History H/O laparoscopy 12/2020 at [facility]. to drain Hepatic abscess and drain placed. Hx of surgical biopsy pancreatic cancer S/P right rotator cuff repair Family History Other No family history of adverse response to anesthesia Social History Smoking Status: Former smoker Tobacco Type: Cigarettes packs per day: 1; Years Smoked: 25; Second Hand Exposure: No; Hx Alcohol Use: No Hx Substance Use: No Preferred Language: Maltese Communication Ability: Effective Ssas Developer Required: No Beliefs That Will Affect Care: None Current Living Situation: Spouse and Family Current Living Situation Comment: Spouse and 1 child. How many Children do You have: 3 Feels Safe at Home: Yes Assistive Devices: None Review of Systems Review of Systems: [place] System Assessment Scale: Pain: 2/3 Anxiety: 1/3 Shortness of breath: 0/3 Tiredness: 1/3 Drowsiness: 1/3 Lack of Appetite: 1/3 Palliative Performance Scale: 50% Physical Exam Constitutional: + ill appearing and cooperative ENMT: Nose: + dry nasal mucous membranes Respiratory: normal respiratory effort Cardiovascular: Rate/Rhythm: regular rate and regular rhythm Heart Sounds: normal S1 and normal S2 Extremities: normal capillary refill; no edema Gastrointestinal (Abdomen): normal bowel sounds, soft, nontender, no hepatosplenomegaly Skin: normal turgor Psychiatric: Orientation: alert and oriented x 3 Affect: + flat affect Insight: good insight Judgement: good judgement Results & Data ([facility]) Vital Signs (Past 12 Hours) Vital Signs Temp Pulse Resp BP Pulse Ox 02/12/21 08:10 37.1 C 72 16 148/87 H 95 02/11/21 22:43 37.2 C 73 17 129/86 95 PG Care Time/CCT Total # of Minutes Spent Total Time Spent with Patient: Total time spent is greater than 50% in coordination of care (as documented) at patient's floor/unit and/or counseling patient: 100 minutes with > 50% of that time spent assessing the patient, discussing goals of care, discussing symptom and pain management, adjusting medications, and collaborating with IDT Coding Level of Care Code 87933 Inpt Consult Level 4 Diagnoses Palliative care encounter Z51.5 Pain, abdominal R10.9 Nausea & vomiting R11.2 Lack of appetite R63.0 Time Spent (min) 100
[2021-02-12] MEDS: GABAPENTIN 100 MG CAP PO SCH ×2 (13:48→21:03)
[2021-02-12] MEDS: HYDROmorphone HCL 2 MG TAB PO PRN ×2 (15:21→21:11)
[2021-02-12] MEDS: FONDAPARINUX 2.5 MG/0.5 ML SYR SQ SCH (18:40)
[2021-02-12] MEDS: LIDOCAINE 5% 1 PATCH TD SCH (21:00)
[2021-02-13] MEDS: HYDROmorphone HCL 2 MG TAB PO PRN ×4 (01:10→15:10)
[2021-02-13] MEDS: CHECK fentaNYL PATCH PLACEMENT SCH ×3 (01:11→16:09)
[2021-02-13 06:59] LABS: Hematocrit (blood only) 32.4 % (42-52); Hemoglobin 11.1 g/dL (14.0-18.0); Mean Corpuscular Hemoglobin 29.5 pg (25-34); Mean Corpuscular Hgb Conc 34.3 g/dL (32-36); Mean Corpuscular Volume 86.2 fL (80-100); RDW Coefficient of Variation 13.4 % (11.5-14.5); RDW Standard Deviation 41.9 fL (36.4-46.3); Red Blood Count 3.76 M/uL (4.7-6.1); White Blood Count 2.18 K/uL (4.8-10.8)
[2021-02-13 07:00] LABS: Mean Platelet Volume 9.5 fL (7.4-10.4); Platelet Count 81 K/uL (130-400)
[2021-02-13 07:25] LABS: Calcium 8.7 mg/dl (8.5-10.1); Creatinine Clr Calc Pharmacy 156.3 ml/min; Est GFR (African American) 129.5 ml/min; Est GFR (Non-African American) 111.7 ml/min; Potassium 3.7 mmol/L (3.5-5.1)
[2021-02-13 07:44] LABS: Eosinophils # (auto) 0.16 K/uL (0-0.5); Eosinophils % (auto) 7.3 %; Lymphocytes # (auto) 0.83 K/uL (1.2-3.4); Lymphocytes % (auto) 38.1 %; Monocytes # (auto) 0.37 K/uL (0.11-0.59); Neutrophils % (auto) 37.6 %; RBC Morphology Unremarkable
[2021-02-13] MEDS: FAMOTIDINE 20 MG TAB PO SCH (07:52)
[2021-02-13] MEDS: AMOXICILLIN 500 MG CAP PO SCH (07:52)
[2021-02-13] MEDS: GABAPENTIN 100 MG CAP PO SCH ×2 (07:52→15:10)
[2021-02-13] MEDS: ADVANCED PROBIOTIC 1250 MG CAPSULE PO SCH (07:52)
[2021-02-13] MEDS: PANTOprazole 40 MG TAB PO SCH (07:53)
[2021-02-13] MEDS: POLYETHYLENE (MIRALAX) 17 GM PACK PO SCH (07:54)
[2021-02-13 09:03] LABS: Neutrophils # (auto) 0.82 K/uL (1.4-6.5)
--- NOTE | 2021-02-13 09:04 | Hospitalist Progress Note ---
Date of Service February 13, 2021 Assessment & Plan (1) Pancreatic adenocarcinoma: Mr. Negrete is a 45 y/o M w/ metastatic (liver mets) pancreatic adenocarcinoma on chemo who presented w/ a month of dehydration, N/V, and intractable abd pain. Intractable abdominal pain secondary to metastatic pancreatic adenocarcinoma -CT abdomen/pelvis with evidence of hepatic metastasis of known pancreatic cancer, BL nephrolithiasis, diverticulosis without evidence of diverticulitis -Outpt chemo regimen FOLFIRINOX q2w, last received on 02/01/21 - [facility] [place] (sees Dr. Armenta) -GI consulted: poor prognosis, no EGD at this time, continue supportive management -Radiation oncology consulted: no role for radiation treatment at this time -Continue famotidine, protonix, home probiotic, dronabinol. -Continue MgOH for constipation. Miralax 1 packet daily PRN. Nausea, controlled: -zofran 4mg IV q6hprn Pain control: - 02/12/21 consulted palliative medicine. current regimen is fentanyl patch 50 mcg q72h and PO dilaudid 1 mg IV prn for breakthrough pain. added gabapentin 100mg PO TID. oxycodone prn discontinued -Continue sublingual nitroglycerin prn for esophageal spasms, abdominal colic - continue prn tylenol and ibuprofen - f/u w/ palliative as outpt - outpt referral to pain management for eval of celiac plexus block - dispo changed from 02/12 to likely 02/13; will assess how much of the PRN PO dilaudid is required overnight Thrombocytopenia - Chemotherapy induced vs HIT - considered chemotherapy side effect vs HIT - Plts 166->70 02/07-02/08. Plts have stayed low (~60) since. SQ Lovenox was d/c'd on 02/10. Plt 73 on 02/12, some improvement - 02/11/[address] Armenta, patient's outpatient heme/onc physician, regarding thrombocytopenia - time course of abrupt decline in platelet count 1 day after starting ppx Lovenox is more suggestive of HIT type 1 - chemo side effect after 1.5 wk is possible, but less consistent w/ sudden abrupt decline - HIT type 1 is less likely thrombotic than type 2 - considered DVT ppx options. considered Eliquis, but opted for fondaparinux as Eliquis would be off-label use and higher concern for bleed/reversibility - PF4 Ab sent - check daily CBC Leukopenia, downtrending - 2.87 on 02/12 - most likely be secondary to chemotherapy - check daily CBC Severe protein-calorie malnutrition - Consulted dietary Insomnia -Continue Ambien 5mg PO qhs. can cause sedation, but will not discontinue abruptly FENGI: regular diet. no IVF DVT ppx: started 2.5 mg PO daily fondaparinux on 02/11 PM. Dispo: med/surg. tentative dispo 02/13 Code status: full code (2) Pancreatic cancer metastasized to liver: (3) Acute dehydration: (4) Intractable nausea and vomiting: Admission and Anticipated Discharge Date Admission Date: February 08, 2021 Subjective Pain is 6/10. Patient feels more lively today. APpeitte unchanged. The PO 1mg dilaudids are helping. Pt feels comfortable w/ home today Review of Systems Review of Systems: Constitutional: Denies fever, chills ENT: Denies sore throat, sinus pain Cardiovascular: Denies chest pain, palpitations Respiratory: Denies shortness of breath Gastrointestinal: Denies nausea, vomiting, constipation, diarrhea Genitourinary: Denies urinary symptoms including dysuria Musculoskeletal: Denies weakness, muscle aches/pain, joint aches/pain Neurological: Denies headache, numbness, tingling, focal weakness Physical Exam Physical Exam: General: Grossly A&O. NAD. Cooperative. HEENT: Atraumatic, normocephalic. Pulm: CTAB. -wheezes, -rales, -rhonchi. No respiratory distress. Cardiac: RRR, -mrg. Radial pulses intact and symmetrical. Abdominal: MIld ttp diffusely, worse lower abd. nondistended, soft. Results & Data Results & Data ([facility]) Vital Signs (Past 12 Hours) Vital Signs Temp Pulse Resp BP Pulse Ox 02/13/21 07:42 36.9 C 68 16 136/83 92 02/12/21 23:11 37.3 C 76 16 128/84 93
--- NOTE | 2021-02-13 11:41 | Discharge Summary ---
Date of Service February 13, 2021 Admission HPI Per Admitting Provider Mr. Negrete is a 45-year-old male a history of Metastatic Pancreatic Adenocarcinoma with Liver Metastases, Nephrolithiasis, Hemorrhoids, and a history of a Liver Abscess s/p Surgical Intervention/Drain at [facility] who presents acutely to [facility] ER today complaining of persistent abdominal pain and vomiting for the past month and a half. The patient has a diffuse pain/pressure rated at a 10/10 throughout his abdomen but mostly in the upper abdomen and midepigastrium. He describes it mostly as a pressure and it gets worse when he eats or drinks. If he tries to eat or drink anything he feels extremely nauseated, starts burping, and then he usually vomits. He was vomiting up some brown material and he admits that his stools are dark but not black. He does have a history of hemorrhoids. He cannot keep anything down and he is not urinating as much as usual. When he urinates it is very dark and concentrated. Patient denies any fever but states he has had some chills. Patient continues to gradually lose weight. He has lost about 25 lb since being diagnosed with pancreatic cancer. Patient denies any known exposure to COVID-19 but has not had the vaccine. He did have a negative test recently in order to get a port placed. His last bowel movement was yesterday after he ate some Jell-O but it was a very small amount. The upper abdominal/midepigastric pain does radiate into his lower chest. He denies associated SOB, [place], diaphoresis. He does have some antibiotics left for treatment of his hepatic abscess which previously had a drain and was treated at [facility]. Patient is currently receiving his chemotherapy treatments through the [facility] [place]. He is on the FOLFIRINOX protocol every 2 weeks (this includes Fluorouracil, Leucovorin, Irinotecan, Oxaliplatin). His last chemotherapy treatment was on 02/01/21. His oncologist is Dr. Armenta. Admission Exam Per Admitting Provider GENERAL: Patient has a pale complexion, he is lying comfortably on the ER litter. HEENT: Head is atraumatic, normocephalic. Sclerae are anicteric. EOM's intact. Facies symmetric. No perioral cyanosis. NECK: No JVD. JVP is not elevated. Carotid upstrokes are + 2 bilaterally. No bruits are noted. No cervical adenopathy or supraclavicular adenopathy. CHEST/LUNGS: Clear to auscultation throughout all lung leonard. No wheezes, rales, or crackles. CVS: S1 and S2 are regular without murmurs, gallops, or rubs. PMI is nondisplaced. No lifts, heaves, or thrills. No abdominal aortic or renal br uits. ABDOMINAL EXAM: Bowel sounds are present. Mild tender to palpation in the midepigastrium. No guarding, rigidity, or rebound tenderness. No palpable masses. EXTREMITIES: No clubbing or cyanosis. No edema. Intact posterior tibial and radial pulses bilaterally. NEUROLOGIC EXAM: Patient is lying quietly, but rouses to verbal stimuli. Answers questions appropriately. Speech is clear. Normal movement in all 4 extremities. Gait pattern was not assessed. Principal Diagnosis abdominal pain secondary to pancreatic adenocarcinoma Discharge Exam General: Grossly A&O. NAD. Cooperative. HEENT: Atraumatic, normocephalic. Pulm: CTAB. -wheezes, -rales, -rhonchi. No respiratory distress. Cardiac: RRR, -mrg. Radial pulses intact and symmetrical. Abdominal: Mild ttp diffusely, worse lower abd. nondistended, soft. Discharge Data Allergies Allergy/AdvReac Type Severity Reaction Status Date / Time No Known Allergies Allergy Unverified 02/07/21 13:56 Consultations 02/07/21 14:24 ED Decision to Admit Stat 02/07/21 18:15 Consult Gastroenterology Routine 02/08/21 14:48 Consult Radiation Oncology Routine 02/12/21 09:19 Consult Palliative Care Routine Ordered Studies 02/07/21 12:37 CT abd pelvis wo con Stat IMPRESSION: 1. Significantly suboptimal examination lateral and IV contrast. 2. There are no acute infectious or inflammatory findings in the abdomen or pelvis. 3. Infiltrative low-attenuation mass lesion is suggested in the pancreatic head, likely corresponding to the reported history of pancreatic cancer. 4. There are numerous (greater than 10) low attenuation hepatic lesions. These are highly suspicious for multifocal hepatic metastatic disease. 5. Enlarged upper abdominal lymph node is also likely neoplastic. 6. Bilateral nephrolithiasis. 7. Mild colonic diverticulosis without CT evidence of acute diverticulitis. 8. Refer to full report for additional findings Hospital Course (1) Pancreatic adenocarcinoma: Mr. Negrete is a 45 y/o M w/ metastatic (liver mets) pancreatic adenocarcinoma on chemo who presented w/ a month of dehydration, N/V, and intractable abd pain. He was admitted to [facility] from 02/07/21-02/13/21. Intractable abdominal pain secondary to metastatic pancreatic adenocarcinoma -CT abdomen/pelvis with evidence of hepatic metastasis of known pancreatic cancer, BL nephrolithiasis, diverticulosis without evidence of diverticulitis -Outpt chemo regimen FOLFIRINOX q2w, last received on 02/01/21 - [facility] (sees Dr. Armenta) -GI consulted: poor prognosis, no EGD at this time, continue supportive management -Radiation oncology consulted: no role for radiation treatment at this time -Continue home famotidine, protonix, home probiotic. dronabinol d/c'd -follow up with hematology/oncology (Dr. Armenta) Pain control: Patient's abdominal pain was the main concern this admission. It is intractable and severe even with large doses of narcotic medications. There was concern about oversedation as patient required large doses of 6 mg PO dilaudid. Palliative medicine was consulted and the pain regimen was adjusted, mainly by increasing dose of fentanyl patch from 20 to 50 mcg q72h and decreasing the prn doses of dilaudid. Gabapentin was aded. current regimen is fentanyl patch 50 mcg q72h and PO dilaudid 1 mg q4hprn for breakthrough pain. added gabapentin 100mg PO TID. oxycodone prn discontinued. * close follow up with palliative medicine as outpatient * outpt referral placed to pain management for eval of celiac plexus block miscellaneous: - sublingual nitroglycerin prn for esophageal spasms, abdominal colic - continue prn tylenol and ibuprofen Thrombocytopenia - Chemotherapy induced vs HIT type 1 - considered chemotherapy side effect vs HIT - Plts 166->70 02/07-02/08. Plts have stayed low (~60) since. SQ Lovenox was d/c'd on 02/10. Plt 73 on 02/12, some improvement - 02/11/[address] Armenta, patient's outpatient heme/onc physician, regarding thrombocytopenia - time course of abrupt decline in platelet count 1 day after starting ppx Lovenox is more suggestive of HIT type 1 - chemo side effect after 1.5 wk is possible, but less consistent w/ sudden abrupt decline - HIT type 1 - considered DVT ppx options. considered Eliquis, but opted for fondaparinux as Eliquis would be off-label use and higher concern for bleed/reversibility. d/c'd dvt ppx upon dispo. - PF4 Ab sent: result was negative - check cbc in 2 weeks at hematology f/u Leukopenia, downtrending - 2.87 on 02/12 - most likely be secondary to chemotherapy - check cbc in 2 weeks at hematology f/u Severe protein-calorie malnutrition - consulted dietary - encourage PO intake, encourage patient to eat foods that he enjoys Insomnia -Ambien 5mg PO qhs provided this admission. d/c'd upon dispo home. caution against restarting due to concerns about oversedtion code status during this admission: full code (2) Pancreatic cancer metastasized to liver: (3) Acute dehydration: (4) Intractable nausea and vomiting: Total Time Total Time Spent Total Time Spent (In Minutes): See attending documentation. Discharge Plan Discharge Items Patient Disposition: Home - Self-Care Reason For Visit: ABD PAIN, N&V, DEHYDRATION Discharge Diagnosis: abdominal pain from pancreatic adenocarcinoma Activity: Per Instructions section Non-emergency contact: Primary Care Provider and Oncologist Call non-emergency contact if: you have any medication questions, your symptoms worsen and you have a fever Follow-up/Referrals: Juan Lutz MD, FIPP [Anesthesiologist] - 02/18/21 10:45 am (referral to pain management to be seen in 2 weeks for evaluation of celiac plexus block APPT HAS BEEN MADE WITH [facility]) Wilfred Armenta DO [Physician] - 02/26/21 2:50 pm (hosp f/u w/ heme/onc in 1-2 weeks) Kaylynn Ho CRNP [Nurse Practitioner] - 02/28/21 2:00 pm (Please follow up with [facility] palliative care in 1-2 weeks.) Neal Franco PA-C [Primary Care Provider] - 02/20/21 10:30 am ([facility]) Diet: Regular Addtl Attending Provider Instructions: Hi Mr. Negrete, You were admitted to [facility] for severe abdominal pain likely from your pancreatic cancer. You were given IV fluids and pain medication. Medications: This is the narcotic pain regimen that is recommended at this time. - fentanyl 50mcg patch to be changed every 72 hours - dilaudid PO 1mg up to every 4 hours NEEDED for breakthrough pain. - gabapentin 100 mg 3 times a day - continue tylenol and ibuprofen as needed, but avoid exceeding daily limits (3000mg max daily for tylenol, 1200mg max daily for ibuprofen) - you may also use an over the counter lidocaine patch in addition to the above Follow up with Dr. Armenta in 2 weeks. Please obtain CBC in 2-4 weeks to check your blood counts Follow up with your PCP in 1 week. Follow up with [facility] palliative care medicine in 1-2 weeks. You have been referred to [facility] pain management to be seen in 2 weeks. Return precautions: If you develop any new or worsening symptoms including fever, chills, sweats, chest pain, chest pressure, difficulty breathing, uncontrolled nausea/vomiting, rash, wheezing, passing out or nearly passing out, bleeding, black/bloody bowel movements, or other new or concerning symptoms please call your primary care physician, or call 911 for re-evaluation in the emergency department if you are very concerned. Pending Studies at Discharge: Yes Stand-Alone Forms: [facility] Smoking Cessation Medications and DC Order Prescriptions: New nitroglycerin [Nitrostat] 0.4 mg Tablet, Sublingual 0.4 mg sublingual PRN PRN (Reason: esophageal spasm) 30 Days Qty: 15 RF: 0 fentanyl 50 mcg/hr patch 72 hour 1 patch transdermal Q72H Qty: 5 RF: 0 gabapentin 100 mg Capsule 100 mg PO TID 30 Days Qty: 90 RF: 0 fentanyl 50 mcg/hr Patch 72 Hour 50 mcg transdermal Q72H Qty: 5 RF: 0 hydromorphone [Dilaudid] 2 mg Tablet 1 mg PO Q4H PRN (Reason: pain) Qty: 45 RF: 0 Continued amoxicillin 500 mg capsule 500 mg PO BID RF: 0 ibuprofen 200 mg Tablet 800 mg PO Q6H PRN (Reason: Pain) RF: 0 Probiotic 3 billion cell Capsule 3,000 mmu cells PO QAM RF: 0 acetaminophen [Tylenol Extra Strength] 500 mg Tablet 1,000 mg PO Q8H PRN (Reason: pain level: 1-3) RF: 0 Discontinued oxycodone 10 mg tablet 10 mg PO Q4H PRN (Reason: Pain) RF: 0 Discharge Orders: Discharge Order (Routine); Ordered 02/13/21 Ordered By: Piero Ogden Admission Data Admit Date/Time: 02/08/21 18:45 Attending Provider: Nay Edwards Admit Provider: Cricket Patel Primary Care Provider: Neal Franco Other Providers: Bebo Willard ; Sam Murdock Angelica M. ; Gianna Noel ; Trent Vergara ; Andrea Thakur ; Kaylynn Ho Other Interventions: Discharge Summary Assessment (RN) Last Done: 02/13/21 16:10 Supervising Physician Co-Signing Physician Notes Resident Physician Supervision Note: I independently interviewed and examined the patient and verified the kwong histo ry and physical, reviewed labs and image studies and agree with resident Dr. Ogden findings and care plan. Resident Activity Tracking Resident Involvement: Resident Care Provided Care Provided: Adult Hospital Medicine
--- NOTE | 2021-02-13 12:10 | Palliative Care Progress Note ---
Date of Service February 13, 2021 Assessment & Plan (1) Pain, abdominal: He does not clearly describe this as neuropathic. Monitor with increased fentanyl, po dilaudid, lidocaine patch and gabapentin. He will follow up with palliative care as an outpatient and has asked that we call his , Melony to arrange this. (2) Lack of appetite: On marinol (3) Palliative care encounter: (4) Pancreatic cancer metastasized to liver: Admission and Anticipated Discharge Date Admission Date: February 08, 2021 Subjective Sleeping but easily arousable. Still has pain but reports it is tolerable which he rates 5/10. He describes pain in LLQ that feels like a squeezing pain. He does not identify any particular triggers or relieving factors. Review of Systems Review of Systems: [place] Symptom Assessment Scale Pain 2/3 Dyspnea 0/3 NAusea 0/3 Anxiety 0/3 Fatigue 2/3 Drowsiness 1/3 Physical Exam Constitutional: no acute distress ENMT: Mouth: oral mucous membranes not dry Respiratory: normal respiratory effort; no labored breathing Gastrointestinal (Abdomen): tender LLQ, no constipation Musculoskeletal: Extremities: extremities normal to inspection Skin: warm and dry Neurologic: awake; not confused Results & Data ([facility]) Vital Signs (Past 12 Hours) Vital Signs Temp Pulse Resp BP Pulse Ox 02/13/21 07:42 98.4 F 68 16 136/83 92 PG Care Time/CCT Total # of Minutes Spent Total Time Spent with Patient: Total time spent is greater than 50% in coordination of care (as documented) at patient's floor/unit and/or counseling patient: Coding Level of Care Code 12889 Subseq Hosp Care Lvl 2 Diagnoses Pain, abdominal R10.9 Lack of appetite R63.0 Palliative care encounter Z51.5 Pancreatic cancer metastasized to liver C25.9; C78.7
--- NOTE | 2021-02-21 14:15 | Coding Query ---
CODING QUERY To promote full compliance with coding requirements relating to patient care, provider participation is requested in all cases of medical biller/coder uncertainty. Please assist us with the question(s) below: Coding Question(s): Chemotherapy Induced Pancytopenia is documented but does not make discharge. Please clarify below: ( x) (Possible) Chemotherapy Induced Pancytopenia ( ) Chemotherapy Induced Pancytopenia Ruled Out (x ) Other Please Explain: HIT Thank you Jesus Wheeler Principal Diagnosis: "that condition established after study, to be chiefly responsible for occasioning the admission of the patient to the hospital for care." Co-Existing Principal Diagnosis: "when two or more diagnoses equally meet the criteria for principal diagnosis as determined by the circumstances of admission, diagnostic work up, and/or therapy provided, and the Alphabetic Index, Tabular List, or another coding guideline does not provide sequencing direction, any one of the diagnoses may be sequenced first." "When the physician has documented what appears to be a current diagnosis in the body of the record, but has not included the diagnosis in the final diagnostic statement, the physician should be asked whether the diagnosis should be added." (Source Coding Clinic 2 QTR90. p3-4) PRATIK
== END 2021-02-13 17:00 | disposition home or self-care (01) | DRG 947 ==
LOC: 3N 12:18 → ED 12:18 → SUATTDRO 16:12 → 3N 17:30 → SUATTDRO 02-08 18:45